=== PATIENT | female | born 1945 | race Caucasian/White ===

== ENCOUNTER → 2025-05-22 09:48 | Outpatient (CLI) | payer MEDICARE, MEDICAID, SELFPAY ==
--- NOTE | ~2025-05-22 | XR_ITS ---
EXAMINATION: XR shoulder LT min 2V, 05/22/2025 10:00 CDT HISTORY: M25.512 - Pain in left shoulder COMPARISON: No comparisons available. Findings: No acute fracture or malalignment. Severe degenerative changes Soft tissues unremarkable. Impression: No acute fracture or malalignment. Reviewed, dictated and finalized at location P. Impression: No acute fracture or malalignment.
--- OUTSIDE RECORDS SUMMARY | 2025-05-22 09:55 | XMS_ITS | Clinical Summary ---
Author Organization [facility] Address [facility] [place] [address] Care Team Providers Care Nuclear Equipment Design Engineer Name Role Phone Kellie Powers MD Primary Care Provider [phone] Social History Tobacco Use Types Packs/Day Years Used Date Smoking Tobacco: Never Assessed Comments Unknown Sex and Gender Information Value Date Recorded Sex Assigned at Not on file Legal Sex Female 12:33 PM CDT Gender Identity Not on file Sexual Orientation Not on file Plan of Treatment Health Maintenance Due Date Last Done Comments DTaP, Tdap and Td Vaccines ( 1 - Tdap) 01/02/1963 Pneumococcal Vaccine: 50+ Ye ars (1 of 1 - PCV) 01/02/1994 Zoster Vaccines (1 of 2) 01/02/1994 Annual Medicare Wellness Visit 01/02/2009 Dexa Scan (General) 01/02/2009 RSV Immunization or 60+ Years (1 - 1-dose 75+ series) 01/02/2019 COVID-19 Vaccine ( - 2023-2 5 season) 2025 Meningococcal B Vaccine Aged Out No l onger eligible based on patient's age to complete this topic Meningococcal Vaccine Aged Out No barrett ellen eligible based on patient's age to complete this topic RSV Immunizations Under 20 Months Aged Out No longer eligible based on patient's age to complete this topic Insurance MEDICARE [employer] Care Teams Nuclear Equipment Design Engineer Relationship Specialty Start Date End Date Kellie Powers MD [address] [place] [address] PCP - General EMERGENCY MEDICINE 01/17/22
--- OUTSIDE RECORDS SUMMARY | 2025-05-22 09:55 | XMS_ITS | Encounter Summary ---
Author Organization [facility] Address [address] [place] [address] Phone Care Team Providers Care Pocketbook Maker Name Role Phone Marilou Valentine Unavailable Unavailable Kellie Powers MD Primary Care Provider [phone] Encounter Details Date Type Department Care Team (Late st Contact Info) Description 08/22/2024 Telephone [facility] [address] [facility] [place], [place] [phone] Kellie Powers MD [address] [place] [address] Social History Tobacco Use Types Packs/Day Years Used Date Smoking Tobacco: Never Passive Smoke Exposure: Never Smokeless Tobacco: Never Alcohol Use Standard Drinks/Week Comments Never 0 (1 standard drink = 0.6 oz pur e alcohol) [facility] Utilities Answer Date Recorded In the past 12 months has [employer] electric, gas, oil, or water company threatened to shut off services in your home? No 08/21/2024 Social Connection and Isolation Panel Answer Date Recorded In a typical week, how many times do you talk on the phone with family, friends, or neighbors? Twice a week 08/21/20 How often do you get togethe r with friends or relatives? Patient declined 08/21/2024 How often do you attend [facility] or rastafarian services? 1 to 4 times per year 08/21/2024 Do you belong to any clubs o r organizations such as sikh groups, unions, fraternal or athletic groups, or school groups? No 08/21/2024 How often do you attend meet ings of the clubs or organizations you belong to? Patient declined 08/21/2024 Are you , , di vorced, , never , or living with a partner? 08/21/2024 AUDIT-C Answer Date Recorded Q1: How often do you have a drink containing alcohol? Never 08/21/2024 Q2: How many drinks containi ng alcohol do you have on a typical day when you are drinking? Patient does not drink Q3: How often do you have si x or more drinks on one occasion? Never 08/21/2024 Overall Financial Resource Strain (CARDIA) Answe r Date Recorded How hard is it for you to pa y for the very basics like food, housing, medical care, and heating? Not hard at all 08/21/2024 PHQ-2 Answer Date Recorded Total Score - Questions 1-9 0 06/27 [facility] - Occupational Stress Questionnaire Answer Date Recorded Do you feel stress - tense, restless, nervous, or anxious, or unable to sleep at night because your mind is troubled all the time - these days? To some extent 08/21/2024 Exercise Vital Sign Answer Date Recorde d On average, how many days pe r week do you engage in moderate to strenuous exercise (like a brisk walk)? Patient declined On average, how many minutes do you engage in exercise at this level? Patient declined 08/21/2024 Hunger Vital Sign Answer Date Recorded Within the past 12 months, y ou worried that your food would run out before you got the money to buy more. Never true 08/21/20 24 Within the past 12 months, t he food you bought just didn't last and you didn't have money to get more. Never true 08/21/2024 PRAPARE - Transportation Answer Date Re corded In the past 12 months, has l ack of transportation kept you from medical appointments or from getting medications? No 07/28 In the past 12 months, has l ack of transportation kept you from meetings, work, or from getting things needed for daily living? No 08/21/2024 Housing Stability Vital Sign Answer Harpal e Recorded In the last 12 months, was t here a time when you were not able to pay the mortgage or rent on time? No 08/21/2024 Number of Times Moved in the Last Year Not on fi le 08/21/2024 At any time in the past 12 m [facility], were you homeless or living in a senior care (including now)? No 08/21/2024 Comments No Sex and Gender Information Value Date Recorded Sex Assigned at Female 06/16/2024 2:51 PM CDT Legal Sex Female 1:45 PM CDT Gender Identity Female 08/21/2024 7:29 AM VEGETABLE BUNCHER Sexual Orientation Not on file documented as of this encounter Plan of Treatment Not on file documented as of this encounter Visit Diagnoses Not on filedocumented in this encounter Additional Health Concerns Assessment Noted Time PHQ-9 Depression Total Score: 0 07/15/20 1:00 PM VEGETABLE BUNCHER documented as of this encounter Care Teams Pocketbook Maker Relationship Specialty Start Date End Date Kellie Powers MD [address] [place] [phone] PCP - General Internal Medicine 05/16/24 05/11/25 Marilou Valentine Health Informatics Advisor 05/16/24 05/11/25 documented as of this encounter
--- OUTSIDE RECORDS SUMMARY | 2025-05-22 09:55 | XMS_ITS | Clinical Summary ---
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 04/05/20 16 Active empagliflozin (Jardiance) 25 MG TabletIndications: Type 2 diabetes mellitus with diabetic nephropathy, without long-term current use of insulin Take 1 Tablet by mouth daily. 90 Tablet 1 09/22/19 25 Active metFORMIN (GLUCOPHAGE) 1000 MG Tablet TAKE 1 TABLET BY MOUTH EACH MORNING TAKE 1/2 TABLET AT NOON AND TAKE 1 TABLET EVERY EVENING 225 Tablet 1 10/06/19 25 Active Gemtesa 75 MG Tablet TAKE 1 TABLET BY MOUTH EVERY DAY FOR OVERACTIVE BLADDER 30 Tablet 4 12/02/19 25 Active TURMERIC PO Take 2,000 mg by mouth daily. Active omeprazole (PriLOSEC) 20 MG CAPSULE DELAYED RELEASEIndications :Gastroesophageal reflux disease, unspecified whether esophagitis present TAKE 1 CAPSULE BY MOUTH TWICE DAILY BEFORE BREAKFAST AND SUPPER 60 Capsule 2 01/13/20 25 Active buPROPion (WELLBUTRIN) 75 MG TabletIndications: Anxiety TAKE 1 TABLET BY MOUTH EACH MORNING 90 Tablet 1 01/13/20 25 Active meclizine (ANTIVERT) 25 MG TabletIndications: Dizziness Take 1 Tablet by mouth 3 times daily as needed for Dizziness. 60 Tablet 1 01/27/20 25 Active losartan (COZAAR) 25 MG Tablet Take 1 Tablet by mouth daily. 90 Tablet 01/27/20 25 Active traZODone (DESYREL) 50 MG TabletIndications: Insomnia, unspecified type TAKE 1 TABLET BY MOUTH nightly for trouble sleeping 30 Tablet 2 02/10/20 25 Active True Metrix Blood Glucose Test Strip TEST BLOOD SUGAR ONCE DAILY (E11.65) 100 Strip 3 02/10/20 25 Active estradiol (ESTRACE) 0.1 MG/GM CreamIndications:P ostmenopausal atrophic vaginitis 2 g PV nightly x 14 days, then 2 g PV 3 nights/week x 2 weeks, then 2 g PV 2 nights/week thereafter 42.5 g 1 03/03/20 25 Active nystatin (MYCOSTATIN) 860585 UNIT/GM CreamIndications:C andidal intertrigo Apply 2 times daily. Application Site: apply to affected area 2 times a day (Description and Location) 30 g 1 03/19/20 25 Active nystatin (Nyamyc) 703710 UNIT/GM Powder TOPICALLY TWICE DAILY 30 g 2 03/23/20 25 Active pravastatin (PRAVACHOL) 20 MG TabletIndications: Mixed hyperlipidemia TAKE 1 TABLET BY MOUTH EVERY NIGHT AT BEDTIME 90 Tablet 1 03/23/20 25 Active Active Problems Problem Noted Date Diagnosed Date Candidal intertrigo 03/03/2025 Assessment & Plan (03/03/2025 4:16 PM CDT): - inframammary & groin. - refill nystatin cream. Ankle edema, bilateral 01/26/2025 Assessment & Plan (01/26/2025 6:00 PM CDT): - resolution with leg elevation. - continue leg elevation, advised compression stockings. - maintain good bp control. - limit salt. Chronic pain of right ankle 01/26/2025 Assessment & Plan (01/26/2025 6:01 PM CDT): - no recent trauma or injury. - advised ankle brace with prolonged standing/ambulation and prn. Other constipation 01/26/2025 Assessment & Plan (01/26/2025 6:05 PM CDT): - advised she increase water intake to goal to 60-70 oz water daily. - increase dietary fiber intake to >25 g/day. Consider fiber supplement. - stool softener up to 300 mg qd, divided doses. - MiraLax as directed qd-bid. Chronic neck pain 12/26/2024 Assessment & Plan (12/26/2024 11:52 AM CDT): - discussed imaging, as she hasn't had any recent c-spine imaging. Pt declines at this time but states will consider. At risk for falls 12/26/2024 Assessment & Plan (01/26/2025 6:00 PM CDT): - fall precautions reviewed. - home safety reviewed. - pt uses walker or cane 80% of time, primarily walker. Assessment & Plan (12/26/2024 11:54 AM CDT): - fall precautions reviewed. - home safety reviewed. - pt uses walker or cane 80% of time, primarily walker. Essential hypertension 08/25/2024 Assessment & Plan (03/03/2025 4:06 PM CDT): - 129/67 - continue losartan 25 mg qd. - monitor bp several times/week, keep log. Assessment & Plan (01/26/2025 5:57 PM CDT): - 130/93 initial, repeat manual after rest 138/69 in office today. - losartan 25 mg qd discontinue during recent hospitalization for low bp. Advised to resume. - monitor bp daily, keep log. Assessment & Plan (01/05/2025 3:47 PM CDT): - 125/72 in office today. - cpm. History of total knee arthroplasty 08/25/2024 Overview (08/25/2024): b/l History of total right hip replacement Overview (08/25/2024): 10/15 Episodic lightheadedness 08/22/2024 Overview (08/22/2024): Ms Millan went to ED on 08/18/24 for reported intermittent dizziness that started that same morning. She had recently been treated for UTI (10 days of Macrobid as prescribed through [facility]), and was fearful the UTI may have been a factor in the dizziness. In ED on 08/18/24 she had labs and CT head without significant findings. She was eventually discharged with diagnosis of dizziness and a prescription for Antivert 25 mg po TID PRN for dizziness. 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 Single episode of dizziness following ED visit that was noted this morning. States it occurred when she stood up from seated position. She denies feeling like the room is spinning. She states she feels off balance when the episodes occur, and only lasts a few moments. She denies falls. Because her episodes of lightheadedness are momentary, and do not seem to be BPPV associated, meclizine likely of no benefit. Suggest hydrating well with ~ 5 bottles of water daily. (She is drinking 3 16.9 oz bottles/ day). Change positions slowly. Use walker at all time for stability. F/u with Dr Powers on 09/01/24 as scheduled. Steatosis of liver 06/17/2024 Overview (06/17/2024): liver US 03/17 Chronic low back pain 02/16/2024 Fall on same level 02/16/2024 Closed fracture of left talus 07/01/2023 Spinal stenosis 05/25/2023 Alteration in performance of activities of daily living 05/15/2023 Muscle weakness 05/15/2023 Closed fracture of left calcaneus 05/09/2023 Arthralgia of left knee 05/08/2023 Falls 05/05/2023 Assessment & Plan (03/03/2025 4:14 PM CDT): - remove tripping hazards (rugs, clutter, etc) from walkways. Arrange furniture for clear pathways. - install grab bars in bathrooms and near staircases. - use non-slip mats in bathtub/shower. - ensure adequate lighting throughout the home. Use night lights in bedrooms, bathrooms and hallways. - stand up slowly. - keep frequently used items within reach. - wear well-fitting, supportive, non-slip shoes. - use assistive devices, such as walker and/or cane. - get vision and hearing checked regularly. - stay physically active. Assessment & Plan (01/05/2025 3:45 PM CDT): - have been discussing discontinuing Ambien, but pt has been resistant. - initiate Ambien wean due to balance impairment and falls. - reduce dose from 10 to 5 mg qhs. - RTO in ~2 wks. Chronic post-traumatic stress disorder Temporomandibular subluxation 11/02/2020 Dizziness 10/03/2020 Assessment & Plan (01/26/2025 5:57 PM CDT): - responds to meclizine, which she needs on average once every couple weeks. - meclizine refill sent. Assessment & Plan (12/26/2024 11:46 AM CDT): - responds to meclizine, which she needs on average once every couple weeks. CHETNA on CPAP 10/24/2018 Primary osteoarthritis of right hip 10/22/2018 Atherosclerosis of aorta 08/01/2018 Overview (06/17/2024): CXR:07.18.14 Atherosclerotic aorta. Anxiety 03/30/2017 Assessment & Plan (01/05/2025 3:46 PM CDT): - plan on weaning lorazepam once off Ambien completely. - continue lorazepam as precribed for now. Refill sent. Assessment & Plan (12/26/2024 12:01 PM CDT): - recent trial of lorazepam wean unsuccessful due to exacerbation of anxiety. Did not tolerate lorazepam 0.5 mg bid. Currently taking lorazepam 0.5 mg qAM, 1mg q PM. - continue trazodone 50 mg qhs. - upcoming (3 days) telehealth appt with Dr. Fuentes with [facility] behavioral health program at [facility]. Balance problem 11/06/2016 Assessment & Plan (03/03/2025 4:13 PM CDT): - gait instability due to balance impairment. - order wheeled walker with seat and brakes ([employer]). Degeneration of cervical intervertebral disc Gait difficulty 11/06/2016 Type 2 diabetes mellitus wit h diabetic nephropathy, without long-term current use of insulin 02/22/2016 Assessment & Plan (03/03/2025 4:09 PM CDT): - A1c 6.8 (01/18). - continue Jardiance 25 mg qd & metformin 2500 mg qd (divided doses). - continue statin & arb. - order diabetic shoes ([employer]). - patient advised on medication compliance and to maintain fasting blood sugar log to bring back for next visit. Advised on diet and regular exercise. Patient needs to perform proper and frequent foot care and needs a diabetic eye exam yearly. Assessment & Plan (01/26/2025 5:56 PM CDT): - A1c 6.8 (01/18). - continue Jardiance 25 mg qd & metformin 2500 mg qd (divided doses). - continue statin therapy. - losartan discontinued during recent hospitalization due to low bp. Advised to resume. - patient advised on medication compliance and to maintain fasting blood sugar log to bring back for next visit. Advised on diet and regular exercise. Patient needs to perform proper and frequent foot care and needs a diabetic eye exam yearly. Assessment & Plan (01/05/2025 3:48 PM CDT): - A1c 6.9 (03/19). - continue Invokana 300 mg qd. - patient advised on medication compliance and to maintain fasting blood sugar log to bring back for next visit. Advised on diet and regular exercise. Patient needs to perform proper and frequent foot care and needs a diabetic eye exam yearly. Assessment & Plan (12/26/2024 11:49 AM CDT): - A1c 6.6 09/20. - compliant with Jardiance and metformin. - repeat A1c. - check urine microalbum/creat. Assessment & Plan (09/22/2024 1:46 PM CARD SELLER): - repeat A1c & labs. - continue metformin, Invokana, Mixed incontinence 09/20/2015 Cough variant asthma 03/20/2014 High risk medications (not anticoagulants) long- term use 11/26/2013 Vitamin D deficiency 11/26/2013 Overview (06/17/2024): Acid reflux 01/10/2013 Menopausal and postmenopausal disorder 3 Overview (06/17/2024): Obesity 01/10/2013 Assessment & Plan (03/03/2025 4:18 PM CDT): - BMI 30.4. - Reinforced healthy lifestyle modifications including healthy eating, increased physical activity and proper sleep. Goal BMI 18.5-24.9. Assessment & Plan (01/26/2025 6:05 PM CDT): - BMI 30. - Reinforced healthy lifestyle modifications including healthy eating, increased physical activity and proper sleep. Goal BMI 18.5-24.9. Assessment & Plan (01/05/2025 3:49 PM CDT): - BMI 30.0. - Reinforced healthy lifestyle modifications including healthy eating, increased physical activity and proper sleep. Goal BMI 18.5-24.9. Assessment & Plan (12/26/2024 12:02 PM CDT): - BMI 30.0. - Reinforced healthy lifestyle modifications including healthy eating, increased physical activity and proper sleep. Goal BMI 18.5-24.9. Postmenopausal atrophic vaginitis 01/10/2013 Assessment & Plan (03/03/2025 4:17 PM CDT): - discontinued estradiol cream a couple yrs ago. Pt reports increased irritation & would like to resume. - refill estradiol cream. Insomnia 01/10/2013 Overview (06/17/2024): Assessment & Plan (01/05/2025 3:44 PM CDT): - initiate Ambien wean. - Rx trazodone 50 mg qhs. Assessment & Plan (06/18/2024 1:47 PM CDT): - continue ambien wean. Reduce to 2.5 mg nightly in 2 days and continue for 2 wks, then stop. - start trazodone 50 mg nightly once off ambien completely. - RTO 1 month. Irritable bowel syndrome 01/10/2013 Mixed hyperlipidemia 01/10/2013 Moderate recurrent major depression 01/10/2013 Assessment & Plan (03/03/2025 4:10 PM CDT): - stable. - continue bupropion 75 mg qd. Primary osteoarthritis involving multiple joints 01/10/2013 Overview (06/17/2024): Other specified abnormal findings of blood chemi stry 01/10/2013 Overview (06/17/2024): Resolved Problems Problem Noted Date Diagnosed Date Resolved Date Urinary tract infection without hematuria 08/22/2024 01/05/2025 Assessment & Plan (08/22/2024 4:39 PM CARD SELLER): 08/22/24: Urinary s/s have improved on Macrobid. She has completed the course of abx. Preoperative examination 06/17/2024 Acute urinary tract infection 05/09/2023 01/05/2025 Scalp laceration 05/05/2023 06/18/2024 Encounters Date Type Department Care Team Description 05/12/2025 Patient Outreach [facility] Outpatient Care Coordination [address] [place] [address] Marilou Valentine Care Management 03/20/2025 Refill [facility] [address] [place] [address] Kellie Powers MD Medication Refill 03/19/2025 Refill [facility] [address] [place] [address] Kellie Powers MD Medication Refill 03/19/2025 Refill [facility] [address] [place] [address] Kellie Powers MD Medication Refill 03/03/2025 2:30 PM CDT Office Visit [facility] [address] [place] [address] Kellie Powers MD Type 2 diabetes mellitus with diabetic nephropathy, without long-term current use of insulin (HCC) (Primary Dx); Essential hypertension; Moderate recurrent major depression (HCC); Balance problem; Postmenopausal atrophic vaginitis; Class 1 obesity due to excess calories with serious comorbidity and body mass index (BMI) of 30.0 to 30.9 in adult; Chronic low back pain, unspecified back pain laterality, unspecified whether sciatica present; Falls; Primary osteoarthritis involving multiple joints; Candidal intertrigo 03/03/2025 Travel from Last 3 Months Immunizations Immunization Administration Dates Next Due Influenza Vaccine,unspecifie d Formulation 05/27/2019,04/27/2016,05/07/2015,2012,05/14/2011 Influenza, Quadrivalent, Adjuvanted 05/18/2022,0 05/11/2021 Influenza, high-dose, trivalent, PF 06/17/2018 Influenza,Split Virus,Trivalent,Injectable,PF 05/07/2015,07/22/2013 Pneumococcal Vaccine - 13 Valent 10/09/2014 Pneumococcal Vaccine Adult - 23 Valent 03/27/2009 TDAP Vaccine 05/05/2023,11/30/2015 Family History Medical History Relation Name Comments Alzheimer's Disease Brother Heart Attack Father Heart Disease Father Heart Attack Mother Heart Disease Mother Diabetes Paternal Aunt Dementia Sister Relation Name Status Comments Brother Father Maternal Grandfather Maternal Grandmother Mother Paternal Aunt Paternal Grandfather Paternal Grandmother Sister Social History Tobacco Use Types Packs/Day Years Used Date Smoking Tobacco: Never Passive Smoke Exposure: Never Smokeless Tobacco: Never Tobacco Cessation:Counseling Given: No Alcohol Use Standard Drinks/Week Comments Never 0 (1 standard drink = 0.6 oz pur e alcohol) [facility] Utilities Answer Date Recorded In the past 12 months has [employer], gas, oil, or water [employer] threatened to shut off services in your home? No 08/21/2024 Social Connection and Isolation Panel Answer Date Recorded In a typical week, how many times do you talk on the phone with family, friends, or neighbors? Twice a week 08/21/20 How often do you get togethe r with friends or relatives? Patient declined 08/21/2024 How often do you attend [facility] ch or congregation services? 1 to 4 times per year 08/21/2024 Do you belong to any clubs o r organizations such as rastafari groups, unions, fraternal or athletic groups, or school groups? No 08/21/2024 How often do you attend meet ings of the clubs or organizations you belong to? Patient declined 08/21/2024 Are you , , di vorced, , never , or living with a partner? 08/21/2024 Overall Financial Resource Strain (CARDIA) Answe r Date Recorded How hard is it for you to pa y for the very basics like food, housing, medical care, and heating? Not hard at all 08/21/2024 PHQ-2 Answer Date Recorded Total Score - Questions 1-9 0 05/0 09/2024 [facility] - Occupational Stress Questionnaire Answer Date Recorded [...] any time in the past 12 m [facility], were you homeless or living in a chcf (including now)? No 08/21/2024 AUDIT-C Answer Date Recorded Q1: How often do you have a drink containing alcohol? Never 03/03/2025 Q2: How many drinks containi ng alcohol do you have on a typical day when you are drinking? Patient does not drink Q3: How often do you have si x or more drinks on one occasion? 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 Sexual Orientation Not on file Last Filed Vital Signs Vital Sign Reading Time Taken Comments Blood Pressure 129/67 03/03/2025 2:41 PM CDT Pulse 84 03/03/2025 2:41 PM CDT Temperature 36.8 C (98.2 F) 03/03/2025 2:41 PM CDT Respiratory Rate 20 03/03/2025 2:41 PM CDT Oxygen Saturation 96% 03/03/2025 2:41 PM CDT Inhaled Oxygen Concentration - - Weight 82.7 kg (182 lb 6.4 oz) 03/03/2025 2:41 P M CDT Height 165.1 cm (5' 5) 03/03/2025 2:41 PM CDT Body Mass Index 30.35 03/03/2025 2:41 PM CDT Plan of Treatment Health Maintenance Due Date Last Done Comments Diabetes: Eye Exam 1945 Diabetes: Foot Exam 1945 Hepatitis C Virus (HCV) Screening 1945 Zoster Immunization (1 of 2) 01/02/1994 Respiratory Syncytial Virus (RSV) Immunization (Adult) (1 - 1-dose 75+ series) 01/02/2019 DEXA Bone Density 06/18/2021 06/18/2019 Influenza Immunization (#1) 04/27/202504/28, 05/11/2021, 05/27/2019, Additional history exists SARS-COV-2 Immunization ( season) 2025 01/05/2022, 06/27/2021, 10/25/2020, Additional history exists Diabetes: Hemoglobin A1c 06/28/2025 025, 09/22/2024, 02/09/2021, Additional history exists Diabetes: Nephropathy Screening 12/26/2025 12/26/2024, 12/12/2024, 09/22/2024, Additional history exists Td Immunization Every 10 Years (Adults With 1 Tdap) 05/05/2033 05/05/2023, 11/30/2015 Pneumococcal Immunization (50+ years) Completed 10/09/2014, 03/27/2009 TdaP Immunization Discontinued 05/05/2023, 11/30/2015 Hepatitis B Immunization Aged Out No longer eligible based on patient's age to complete this topic Human Papillomavirus (HPV) Immunization Aged Out No longer eligible based on patient's age to complete this topic Meningococcal Immunization (ACWY) Aged Out No longer eligible based on patient's age to complete this topic Rotavirus Immunization Aged Out No lo nger eligible based on patient's age to complete this topic Procedures Procedure Name Priority Date/Time Associated Diagnosis Comments UR MICROALBUMIN/CREATIN INE RATIO RANDOM Routine 12/26/2024 12:12 PM CDT Type 2 diabetes mellitus with diabetic nephropathy, without long-term current use of insulin (HCC) HEMOGLOBIN A1C W/ ESTIMATED GLUCOSE Routine 12/26/2024 12:09 PM CDT Type 2 diabetes mellitus with diabetic nephropathy, without long-term current use of insulin (HCC) from Last 3 Months or Most Recently Relevant to Health Maintenance Results * UR MICROALBUMIN/CREATININE RATIO RANDOM (12/26/2024 12:12 PM CDT) RAN UR MICROALBUMIN 7.20 0.00 - 30.00 mg/L 12/26/2024 5:15 PM CDT [facility] CREATININE URINE 49.4 >=0.0 mg/dL 12/26/2024 5:15 PM CDT [facility] ALB/CREAT RATIO 15 0 - 30 mg/g CRE 12/26/2024 5:15 PM T [facility] Urine Non-Phlebotomy Collection / Unknown 12/26/2024 12:12 PM CDT 12/26/2024 12:12 PM CDT us Kellie Powers MD URINE ORDERABLES Final Resu lt [facility] [address] [place] [address], [place] [phone] * (ABNORMAL) HEMOGLOBIN A1C W/ ESTIMATED GLUCOSE (12/26/2024 12:09 PM CDT) HGB-A1C 6.8(H) 4.0 - 6.0 % 12/26/2024 5:54 PM CDT [facility] Est Average Glucose 148.5 mg/dL 12/26/2024 5:54 PM CDT [facility] Blood Venipuncture / Unknown 12/26/2024 12:09 PM CDT 12/26/2024 12:10 PM CDT us Kellie Powers MD CHEMISTRY ORDERABLES Final Result [facility] [address] [facility] [place] [address], from Last 3 Months or Most Recently Relevant to Health Maintenance Insurance MEDICARE [facility] Advance Directives Documents on File Type Date Recorded 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
--- OUTSIDE RECORDS SUMMARY | 2025-05-22 09:55 | XMS_ITS | Encounter Summary ---
Author Organization [facility] Address [address] [place] [address] Phone Care Team Providers Care Jet Mechanic Name Role Phone Marilou Valentine Unavailable Unavailable Kellie Powers MD Primary Care Provider [phone] Reason for Visit * Reason Comments Medication Refill Encounter Details Date Type Department Care Team (Late st Contact Info) Description 10/02/[address] [place], [place] [phone] [place] [address] [place] [address] Medication Refill Social History Tobacco Use Types Packs/Day Years Used Date Smoking Tobacco: Never Passive Smoke Exposure: Never Smokeless Tobacco: Never Alcohol Use Standard Drinks/Week Comments Never 0 (1 standard drink = 0.6 oz pur e alcohol) [facility] Utilities Answer Date Recorded In the past 12 months has [employer], gas, oil, or water company threatened [...] declined 08/21/2024 How often do you attend chur ch or christian services? 1 to 4 times per year 08/21/2024 Do you belong to any clubs o r organizations such as rastafarian groups, unions, fraternal or athletic groups, or [...] Recorded Total Score - Questions 1-9 0 08/28 [facility] - Occupational Stress Questionnaire Answer Date [...] any time in the past 12 m [facility], were you homeless or living in a care home (including now)? 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
--- OUTSIDE RECORDS SUMMARY | 2025-05-22 09:55 | XMS_ITS | Encounter Summary ---
Author Organization [facility] Address [address] [place] [address] Phone Care Team Providers Care Junior Web Designer Name Role Phone Marilou Valentine Unavailable Unavailable Kellie Powers MD Primary Care Provider [phone] Encounter Details Date Type Department Care Team (Late st Contact Info) Description 08/08/2024 Telephone [facility] [address] [facility] [place], [place] [phone] Kellie Powesr MD [address] [place], [place] Social History Tobacco Use Types Packs/Day Years Used Date Smoking Tobacco: Never Smokeless Tobacco: Never Alcohol Use Standard Drinks/Week Comments Never 0 (1 standard drink = 0.6 oz pur e alcohol) [facility] Utilities Answer Date Recorded In the past 12 months has [employer] electric, gas, oil, or water company threatened to shut off services in your home? No 06/18/2024 Social Connection and Isolation Panel Answer Date Recorded In a typical week, how many times do you talk on the phone with family, friends, or neighbors? Once a week 06/18/2024 How often do you get together with friends or re latives? Never 06/18/2024 How often do you attend protestant or spiritism serv ices? Never 06/18/2024 Do you belong to any clubs o r organizations such as protestant groups, unions, fraternal or athletic groups, or school groups? No 06/18/2024 How often do you attend meet ings of the clubs or organizations you belong to? Never 06/18/2024 Are you , , di vorced, , never , or living with a partner? 06/18/2024 AUDIT-C Answer Date Recorded Q1: How often do you have a drink containing alcohol? Never 06/18/2024 Q2: How many drinks containi ng alcohol do you have on a typical day when you are drinking? Patient does not drink Q3: How often do you have si x or more drinks on one occasion? Never 06/18/2024 Overall Financial Resource Strain (CARDIA) Answe r Date Recorded How hard is it for you to pa y for the very basics like food, housing, medical care, and heating? Not hard at all 06/18/2024 PHQ-2 Answer Date Recorded Total Score - Questions 1-9 0 06/27 [facility] - Occupational Stress Questionnaire Answer Date Recorded Do you feel stress - tense, restless, nervous, or anxious, or unable to sleep at night because your mind is troubled all the time - these days? Not at all 06/18/2024 Exercise Vital Sign Answer Date Recorde d On average, how many days pe r week do you engage in moderate to strenuous exercise (like a brisk walk)? 0 days 06/18/2024 On average, how many minutes do you engage in exercise at this level? 0 min 06/18/2024 Hunger Vital Sign Answer Date Recorded Within the past 12 months, y ou worried that your food would run out before you got the money to buy more. Never true 06/18/20 24 Within the past 12 months, t he food you bought just didn't last and you didn't have money to get more. Never true 06/18/2024 PRAPARE - Transportation Answer Date Re corded In the past 12 months, has l ack of transportation kept you from medical appointments or from getting medications? No 05/28 In the past 12 months, has l ack of transportation kept you from meetings, work, or from getting things needed for daily living? No 06/18/2024 Housing Stability Vital Sign Answer Harpal e Recorded In the last 12 months, was t here a time when you were not able to pay the mortgage or rent on time? No 06/18/2024 Number of Times Moved in the Last Year Not on fi le 06/18/2024 At any time in the past [address] [facility], were you homeless or living in a long term (including now)? No 06/18/2024 Comments No Sex and Gender Information Value Date Recorded Sex Assigned at Female 06/16/2024 2:51 PM CDT Legal Sex Female 1:45 PM CDT Gender Identity Female 08/21/2024 7:29 AM INSTRUCTIONAL DESIGN TECHNOLOGIST Sexual Orientation Not on file documented as of this encounter Miscellaneous Notes * Telephone Encounter - Shasta Burns LPN - 08/08/2024 4:29 PM INSTRUCTIONAL DESIGN TECHNOLOGIST Discussed with Dr powers and pt needs to be seen UA needs to be done and recommendation is to go to [facility], phoned pt and informed on voiced understanding. RUCTIONAL DESIGN TECHNOLOGIST * Telephone Encounter - Cynthia Valadez I - 08/08/2024 4:18 PM CST Pt called and stated she has a UTI and was wanting medication called in. Pts callback number is [phone]. RUCTIONAL DESIGN TECHNOLOGIST documented in this encounter Plan of Treatment Not on file documented as of this encounter Visit Diagnoses Not on filedocumented in this encounter Additional Health Concerns Assessment Noted Time PHQ-9 Depression Total Score: 0 07/15/20 24 1:00 PM INSTRUCTIONAL DESIGN TECHNOLOGIST documented as of this encounter Care Teams Junior Web Designer Relationship Specialty Start Date End Date Kellie Powers MD [address] [place] [id number] PCP - General Internal Medicine 05/16/24 05/11/25 Marilou Valentine Fast Food Cashier 05/16/24 05/11/25 documented as of this encounter
--- OUTSIDE RECORDS SUMMARY | 2025-05-22 09:55 | XMS_ITS | Clinical Summary ---
Author Organization [facility] [employer] Address [address] [place] [address] Care Team Providers Care Body Technician/Painter Name Role Phone Farhad Devlin MD Unavailable [phone] Franco Mishra MD Unavailable Sue DillonDEPORTATION EXAMINER Unavailable [phone] Kellie Powers MD Primary Care Provider [phone] Source Comments [facility],non-owned Affiliates and Associated Physician Practices is amultiple site organization consisting of ambulatory clinics and hospital sitesin [place], [place], [place] and [place]. This disclosure is being madepursuant to the Care Everywhere program and may not contain all information available regarding this patient. Last updated 18.[facility] [employer] Allergies Active Allergy Reactions Criticality Noted Date Comments Duloxetine 01/10/2013 Venlafaxine Diarrhea,Nausea and/or Vomiting 01/10/2013 Atorvastatin Myalgias 01/10/2013 Morphine Nausea and/or Vomiting 09/10/2018 Pravastatin 05/07/2014 Aches, muscle pains Hydrocodone-Acetaminoph en Nausea and/or Vomiting 01/10/2013 Simvastatin Myalgias 01/10/2013 Medications * This document contains information received from the source organization and may not represent a complete record from that organization. * Be aware that medications may not be up to date on this document. Alwaysverify current medications with the patient. CPAPIndications :CHETNA (obstructive sleep apnea) Use as directed 8 Resmed Airsense 10 3 Epr relief-with/with out climate line-Heated humidifier at 4-Nuanee Pro mask, widw white type nasal pillows, size small DX: CHETNA G47.33 CHANGE in PRESSURE from [address] OTERO 1 Each 0 6 Active Additional Information Patient taking differently:Does not apply DIRECTED, 8 Resmed Airsense 10 3 Epr relief-with/without climate line-Heated humidifier at 4-Nuanee Pro mask, widw white type nasal pillows, size small DX: CHETNA G47.33 CHANGE in PRESSURE from [address] OTERO,Indications: as tolerated, Reported on 04/21/2019 fluticasone propionate (FLONASE) 50 MCG/ACT nasal spray Isabela 2 sprays into each nostril as needed Active Sennosides (EX-LAX PO) Active docusate sodium (COLACE) 100 MG capsule Take 1 capsule by mouth once daily 30 capsule 9 Active ibuprofen (MOTRIN) 400 MG tabletIndicatio ns:for arthritis Take 1 tablet by mouth once daily Do not take motrin until Xarelto is completed. May take tylenol in place of motrin. Reasons: for arthritis 30 tablet 9 Active aspirin (ASPIRIN) 81 MG tablet Take 1 tablet by mouth once daily Hold ASA until finished with Xarelto 9 Active losartan (COZAAR) 50 MG tablet TAKE 1 TABLET BY MOUTH TWICE DAILY 360 tablet 3 0 Active escitalopram (LEXAPRO) 20 MG tablet TAKE 1 TABLET BY MOUTH EVERY DAY 90 tablet 3 0 Active glimepiride (AMARYL) 2 MG tablet Take 1 tablet by mouth once daily 90 tablet 3 0 Active TRUE METRIX BLOOD GLUCOSE TEST test strip TEST BLOOD SUGAR TWICE DAILY (E11.65) 100 strip 5 0 Active buPROPion (WELLBUTRIN) 75 MG tablet TAKE 1 TABLET BY MOUTH ONCE A DAY 30 tablet 2 0 Active metFORMIN ER 24hr (GLUCOPHAGE XR) 500 MG tablet TAKE 1 TABLET BY MOUTH (3) TIMES DAILY WITH MEALS 270 tablet 0 Active LORazepam (ATIVAN) 1 MG tablet TAKE 1 TABLET BY MOUTH EVERY 12 HOURS NEEDED FOR ANXIETY 60 tablet 2 0 Active zolpidem (AMBIEN) 10 MG tablet TAKE 1/2 TO 1 TABLET BY MOUTH EVERY NIGHT AT BEDTIME NEEDED FOR SLEEP 90 tablet 1 1 Active omeprazole (PRILOSEC) 20 MG capsule TAKE 1 CAPSULE BY MOUTH TWICE DAILY BEFORE BREAKFAST AND SUPPER 180 capsule 1 Active Active Problems Problem Noted Date Diagnosed Date CHETNA on CPAP 12/03/2018 Primary osteoarthritis of right hip 10/22/2018 Atherosclerosis of aorta 08/01/2018 Overview (08/01/2018): CXR:07.18.14 Atherosclerotic aorta. Balance problem 11/06/2016 Gait difficulty 11/06/2016 Degeneration of cervical intervertebral disc Type 2 diabetes mellitus wit h diabetic nephropathy, without long-term current use of insulin 02/22/2016 Mixed incontinence 09/20/2015 Cough variant asthma 03/20/2014 High risk medications (not anticoagulants) long- term use 11/26/2013 Vitamin D deficiency 11/26/2013 Overview (05/27/2015): Other specified abnormal findings of blood chemi stry 01/10/2013 Overview (07/04/2015): Postmenopausal atrophic vaginitis 01/10/2013 Essential hypertension, benign 01/10/2013 Benign neoplasm of skin of o ther and unspecified parts of face 01/10/2013 Depression 01/10/2013 Esophageal reflux 01/10/2013 Mixed hyperlipidemia 01/10/2013 Insomnia 01/10/2013 Overview (05/27/2015): Irritable bowel syndrome 01/10/2013 Other malaise and fatigue 01/10/2013 Menopausal and postmenopausal disorder 3 Overview (05/27/2015): Obesity 01/10/2013 Overview (05/27/2015): Osteoarthritis 01/10/2013 Overview (05/27/2015): Preoperative examination Resolved Problems Problem Noted Date Diagnosed Date Resolved Date Acute tracheobronchitis 12/31/201808/2018 Intertrigo 09/12/2018 05/27/2019 Difficulty walking 11/14/2016 9 Recurrent falls 11/06/2016 05/27/2019 Contact dermatitis and other eczema, due to unspecified cause 01/10/2013 05/27/2019 Diverticulitis of colon 01/10/201308/2018 Overview (05/27/2015): Edema 01/10/2013 05/27/2019 Immunizations Immunization Administration Dates Next Due Covid Moderna primary monova lent 12+ yr 0.5mL 10/25/2020,09/27/2020 FLU VACCINE TRI IIV3 SPLIT PF IM (FLUVIRIN) 04/27,07/22/2013 INFLUENZA VACCINE 05/27/2019,04/27/2016,05/14/20 11 PNEUMOCOCCAL PPSV23 03/27/2009 TDAP (7yrs+) 11/30/2015 Family History Medical History Relation Name Comments Alzheimer's Disease Brother Heart Disease Father heart attack Heart Disease Mother heart attack Relation Name Status Comments Brother Father Mother Social History Tobacco Use Types Packs/Day Years Used Date Smoking Tobacco: Never Smokeless Tobacco: Never Tobacco Cessation:Counseling Given: No Alcohol Use Standard Drinks/Week Comments No 0 (1 standard drink = 0.6 oz pur e alcohol) PHQ-2 Answer Date Recorded PHQ2 TOTAL SCORE 5 06/02/2022 Comments No Sex and Gender Information Value Date Recorded Sex Assigned at Not on file Legal Sex Female 7:05 AM PRODUCTION MANAGER Gender Identity Not on file Sexual Orientation Not on file Last Filed Vital Signs Vital Sign Reading Time Taken Comments Blood Pressure 142/83 08/13/2019 2:30 PM PRODUCTION MANAGER Pulse 83 08/13/2019 2:30 PM PRODUCTION MANAGER Temperature 36.2 C (97.2 F) 08/13/2019 2:30 PM PRODUCTION MANAGER Respiratory Rate 16 08/13/2019 2:30 PM PRODUCTION MANAGER Oxygen Saturation 97% 08/13/2019 2:30 PM PRODUCTION MANAGER Inhaled Oxygen Concentration 21% 10/25/2018 2 :22 AM PRODUCTION MANAGER Weight 107.4 kg (236 lb 12.8 oz) 08/13/2019 2:30 PM PRODUCTION MANAGER Height 165.1 cm (5' 5) 08/13/2019 2:30 PM PRODUCTION MANAGER Body Mass Index 39.41 08/13/2019 2:30 PM PRODUCTION MANAGER Plan of Treatment Health Maintenance Due Date Last Done Comments DIABETES-STATIN 1984 ZOSTER VACCINE (1 of 2) 01/02/1994 PNEUMOCOCCAL VACCINE 50+ (2 of 2 - PCV) 03/27/2010 03/27/2009 MEDICARE AWV 12 MONTHS 07/14/2017 07/14/2016, 06/11/2015, 06/11/2015, Additional history exists Respiratory Syncytial Virus (RSV) Vaccine Pt: or over 60 yrs (1 - 1-dose 75+ series) 01/02/2019 DIABETES-SERUM CREATININE 11/06/20202019, 05/20/2019, 11/25/2018, Additional history exists BONE DENSITY TESTING 06/18/2021 06/18/2019, 04/30/2014, 01/02/2009 (Previously completed) DIABETES-HGB A1C 10/07/2021 07/07/2021, , 05/20/2019, Additional history exists DIABETES RETINOPATHY SCREENING 05/20/2022 05/20/2020, 02/10/2019 (Done Outside Per Patient), 12/13/2017 (Done Outside Per Report), Additional history exists DEPRESSION SCREENING 08/27/2024 07/11/2022, 06/02/20 22 DIABETES - URINE PROTEIN SCREENING 08/27/2024 COVID-19 VACCINE ( season) 2025 10/25/2020, 09/27/2020 INFLUENZA VACCINE (#1) 2025 9, 04/27/2016, 05/07/2015, Additional history exists DTAP/TDAP/TD VACCINES (2 - Td or Tdap) 11/29/2025 11/30/2015 DIABETES-FOOT EXAM WITH MONOFILAMENT Discontinued 12/18/2016 (Done Outside Per Report) HEPATITIS B VACCINE Aged Out No longe r eligible based on patient's age to complete this topic HIB VACCINE Aged Out No longer eligi ble based on patient's age to complete this topic HPV VACCINE Aged Out No longer eligi ble based on patient's age to complete this topic MENINGOCOCCAL (Group B) VACCINE SHARED DECISION-MAKING Aged Out No longer eligible based on patient's age to complete this topic MENINGOCOCCAL GROUPS A/C/Y/W VACCINE Aged Out No longer eligible based on patient's age to complete this topic Medical Devices Implanted Type Area Public Safety Director Device Identifier Shelf Expiration Date Model / Serial / Lot Constrained Liner 36mm Head, 23 Liner Standard Face Implanted:Qty: 1 on 10/22/2018 by Farhad Romero MD at [facility] [place] Other (Type not listed) Right: [employer] 09/04/2022 [id number] / / [id number] Shell Actb 50mm Hip Lmt Hl Fin Rnglc+ 23 Implanted:Qty: 1 on 10/22/2018 by Farhad Romero MD at [facility] [place] Right: Hip [employer] 09/19/2027 [id number] / / [id number] Screw 6.5mm 25mm Dome Hip Actb Canc Implanted:Qty: 1 on 10/22/2018 by Farhad Romero MD at [facility] [place] Right: Hip [employer] 05/29/2027 [id number] / / [id number] Stem Fem 11mm 160mm Cmnt Por Malhd 136.5 Implanted:Qty: 1 on 10/22/2018 by Farhad Romero MD at [facility] [place] Right: Hip [employer] 06/10/2028 [id number] / / [id number] Witter Hip System Neck, Type 1 Taper 36mm Implanted:Qty: 1 on 10/22/2018 by Farhad Romero MD at [facility] [place] Right: [employer] 09/20/2028 [id number] / / [id number] Procedures Procedure Name Priority Date/Time Associated Diagnosis Comments COMPREHENSIVE METABOLIC PANEL Routine 11/07/2019 9:56 AM CDT Type 2 diabetes mellitus with diabetic nephropathy, without long-term current use of insulin HEMOGLOBIN A1C Routine 11/07/2019 9:56 AM CDT Type 2 diabetes mellitus with diabetic nephropathy, without long-term current use of insulin DEXA BONE DENSITY AXIAL SKELETON Routine 06/18/2019 11:30 AM CDT Post-menopause from Last 3 Months or Most Recently Relevant to Health Maintenance Results * (ABNORMAL) HEMOGLOBIN A1C (11/07/2019 9:56 AM CDT) Hemoglobin A1c 8.2(H) 4.2 - 5.6 % 11/07/2019 1:25 PM CDT [facility] Estimated Average Glucose 189 mg/dL 11/07/2019 1:25 PM CDT [facility] Blood BLOOD SPECIMEN / Unknown Venipuncture / Unknown 11/07/2019 9:56 AM CDT 11/07/2019 9:56 AM CDT Narrative [facility] - 11/07/2019 1:25 PM CDT The following cutoff levels are recommended by [place] [employer]. A1c > 6.5% : considered as diabetes if two separate tests >6.5% or in an appropriate clinical setting. A1c 5.7% - 6.4% : considered as prediabetes (suggest increased risk for diabetes and cardiovascular disease) Control target level: Should be individualized. < 7 for general (non-) , < 8% less stringent goal, < 6.5 more stringent goal. Hemoglobin A1c measurements are used as an aid in the diagnosis of diabetic mellitus, as an aid to identify patients who may be at the risk for developing diabetic mellitus, and for the monitoring long-term blood glucose control in individuals with diabetes mellitus. This test should not replace glucose testing for patients with Type 1 diabetes, pediatric patients, or women. Falsely low HbA1c results may be observed in patients with clinical conditions that shorten erythrocyte life span or decrease mean erythrocyte age such as the presence of unstable hemoglobin variants, elevated hemoglobin F level or other causes of hemolytic anemia . HbA1c may not accurately reflect glycemic control when clinical conditions that affect erythrocyte survival are present. Severe Iron deficiency anemia may yield falsely high results. Hemoglobin A1c assay should not be used to diagnose or monitor diabetes in patients with malignancy, recent blood transfusion, chronic kidney or liver disease. This method may yield falsely low results when hemoglobin (HbF) exceeds 5% in the specimen. us Ken Otero MD LAB - CHEMISTRY ORDERABLES Missy mcdermott Result [facility] [address] * (ABNORMAL) COMPREHENSIVE METABOLIC PANEL (11/07/2019 9:56 AM CDT) [facility] Glucose 184(H) 70 - 125 mg/dL 11/07/2019 1:55 PM T [facility] Sodium 138 136 - 145 mmol/L 11/07/2019 1:55 PM T [facility] Potassium 4.0 3.4 - 4.5 mmol/L 11/07/2019 1:55 PM [facility] Chloride 101 98 - 107 mmol/L 11/07/2019 1:55 PM T [facility] CO2 25 22 - 29 mmol/L 11/07/2019 1:55 PM T [facility] Calcium 9.1 8.4 - 10.2 mg/dL 11/07/2019 1:55 PM T [facility] Anion Gap 16 10 - 20 mmol/L 11/07/2019 1:55 PM T [facility] BUN 17.3 9.8 - 20.1 mg/dL 11/07/2019 1:55 PM [facility] Creatinine 0.69 0.57 - 1.11 mg/dL 11/07/2019 1:55 PM [facility] eGFR by MDRD >60 >60 mL/min/1.7 3m2 11/07/2019 1:55 PM [facility] eGFR by MDRD >60 >60 mL/min/1.7 3m2 11/07/2019 1:55 PM T [facility] Alkaline Phosphatase 110 40 - 150 U/L 11/07/2019 1:55 PM [facility] ALT 28 5 - 55 U/L 11/07/2019 1:55 PM [facility] AST 24 5 - 34 U/L 11/07/2019 1:55 PM [facility] Protein Total 6.8 6.4 - 8.3 gm/dL 11/07/2019 1:55 PM [facility] Albumin 3.4(L) 3.5 - 5.0 gm/dL 11/07/2019 1:55 PM [facility] Globulin Total 3.4 2.6 - 4.0 gm/dL 11/07/2019 1:55 PM [facility] Albumin/Globulin Ratio 1.0 0.9 - 1.6 11/07/2019 1:55 PM CDT [facility] Bilirubin Total 0.5 0.2 - 1.2 mg/dL 11/07/2019 1:55 PM CDT [facility] Blood BLOOD SPECIMEN / Unknown Venipuncture / Unknown 11/07/2019 9:56 AM CDT 11/07/2019 9:56 AM CDT us Ken Otero MD LAB - CHEMISTRY ORDERABLES Missy l Result Performing Organization Address [facility] Co de Phone Number [facility] [address] * DEXA BONE DENSITY STUDY [id number] (06/18/2019 11:30 AM CDT) Anatomical Region Laterality Modality Radiographic Luz Marina ging 06/18/2019 11:5 0 AM CDT Impressions 06/18/2019 11:52 AM CDT COMPARISON: 04/30/2014. HIP JOINT:. BMD-1.043 g centimeters square T score 0.3 Z score 1.2. LUMBAR SPINE:. BMD-1.462 g centimeters square T score 2.2 Z score 2.8. RADIUS:. BMD 0.653 g centimeters square T score -0.5 Z score 1.8. IMPRESSION:. Normal BMD No osteopenia or osteoporosis Follow-up in 2 years. 10 year probability of fracture as follows. Major osteoporotic fracture 9.2% Hip fracture 2.3%. Narrative 06/18/2019 11:52 AM CDT PROCEDURE: DEXA BONE DENSITY AXIAL SKELETON 06/18/2019 11:50 AM HISTORY: Asymptomatic menopausal state. FINDINGS AND Procedure Note Shaquille Fuentes MD - 06/18/2019 PROCEDURE: DEXA BONE DENSITY AXIAL SKELETON 06/18/2019 11:50 AM HISTORY: Asymptomatic menopausal state. FINDINGS AND IMPRESSION COMPARISON: 04/30/2014. HIP JOINT:. BMD-1.043 g centimeters square T score 0.3 Z score 1.2. LUMBAR SPINE:. BMD-1.462 g centimeters square T score 2.2 Z score 2.8. RADIUS:. BMD 0.653 g centimeters square T score -0.5 Z score 1.8. IMPRESSION:. Normal BMD No osteopenia or osteoporosis Follow-up in 2 years. 10 year probability of fracture as follows. Major osteoporotic fracture 9.2% Hip fracture 2.3%. Ken Otero MD DEXA ORDERABLES Final Result from Last 3 Months or Most Recently Relevant to Health Maintenance Insurance MEDICARE COMMERCIAL GENERIC MEDICARE SUPPLEMENT PAYOR GENERIC MEDICARE MEDICARE MEDICARE SUPPLEMENT PAYOR GENERIC [facility] Advance Directives * Full Code (Latest Code Status on File) Date Activated Date Inactivated Comments 10/22/2018 4:31 PM 10/25/2018 4:34 PM Care Teams Body Technician/Painter Relationship Specialty Start Date End Date Kellie Powers MD [address] [place] [id number] PCP - General Internal Medicine 12/25/24 Farhad Devlin MD General Surgery 01/16/14 Franco Mishra MD Pulmonary Disease 03/26/14 Sue Dillon APRN-CNP Nurse Practitioner Pulmonary Disease 12/20/17
== END ==
PROVIDERS: PCP Nurse Practitioner Family; Visit Provider Nurse Practitioner Family
DX: M25.512 Pain in left shoulder (principal)
CPT/HCPCS: 73030

== ENCOUNTER 2025-06-09 19:05 | Emergency (ER) | payer MEDICARE, MEDICAID, SELFPAY ==
--- NOTE | ~2025-06-09 | CT_ITS ---
CT abdomen pelvis w con INDICATION:abd pain, generalized . COMPARISON: None. TECHNIQUE: Axial images of the abdomen and pelvis were obtained following infusion of 100 mL Isovue 300. Dose optimization technique was utilized. FINDINGS: The lung bases are clear. There is a small hiatal hernia. The liver parenchyma is unremarkable. No intrahepatic mass or ductal dilatation is evident. The gallbladder is unremarkable. The pancreas and spleen are normal in appearance. Indeterminate 15 mm left adrenal nodule. The kidneys demonstrate symmetric uptake and excretion of contrast. 2 cm left renal cyst is noted. There is no solid mass. There is no hydronephrosis. Evaluation of the stomach and bowel loops are limited due to lack of oral contrast. Moderate retained stool throughout the colon is consistent with constipation. The bladder and rectum are normal. No free intraperitoneal fluid or air is evident. There is no significant retroperitoneal lymphadenopathy. The aorta, visceral vessels and renal arteries demonstrate normal caliber and patency. The lower thoracic and lumbar vertebrae are in normal alignment. IMPRESSION: Small hiatal hernia. Indeterminate 15 mm left adrenal nodule. Constipation. All CT scans at this facility are performed using low dose modulation techniques as appropriate to perform exam including the following: automated exposure control; use of iterative reconstruction technique; adjustment of the mA and/or kV according to patient size (this includes techniques or standardized protocols for targeted exams where dose is matched to indication/reason for exam). Reviewed, dictated and finalized at location S. IMPRESSION: Small hiatal hernia. Indeterminate 15 mm left adrenal nodule. Constipation. All CT scans at this facility are performed using low dose modulation techniqu es as appropriate to perform exam including the following: automated exposure c ontrol; use of iterative reconstruction technique; adjustment of the mA and/or kV according to patient size (this includes techniques or standardized protocol s for targeted exams where dose is matched to indication/reason for exam).
--- NOTE | ~2025-06-09 | XR_ITS ---
XR shoulder LT min 2V HISTORY: Shoulder Pain COMPARISON: None. FINDINGS: External and internal rotated views and scapular Y view of the left shoulder demonstrate no acute fracture or dislocation. AC joint arthropathy is noted. IMPRESSION: No acute fracture or dislocation. Reviewed, dictated and finalized at location S.
--- OUTSIDE RECORDS SUMMARY | 2025-06-09 19:11 | XMS_ITS | Encounter Summary ---
Author Organization [facility] Address [address] [place] [address] Phone Care Team Providers Care Photo Tech Name Role Phone Marilou Valentine Unavailable Unavailable Kellie Powers MD Primary Care Provider [phone] Encounter Details Date Type Department Care Team (Late st Contact Info) Description 08/22/2024 Telephone [facility] [address] [facility] [place], [place] [phone] Kellie Powers MD [address] [place] [address] Social History Tobacco Use Types Packs/Day Years Used Date Smoking Tobacco: Never Passive Smoke Exposure: Never Smokeless Tobacco: Never Alcohol Use Standard Drinks/Week Comments Never 0 (1 standard drink = 0.6 oz pur e alcohol) [facility] Utilities Answer Date Recorded In the past 12 months has [employer] electric, gas, oil, or water company threatened [...] declined 08/21/2024 How often do you attend [facility] or gnosticism services? 1 to 4 times per year 08/21/2024 Do you belong to any clubs o r organizations such as roman catholic groups, unions, fraternal or athletic groups, or [...] Total Score - Questions 1-9 0 06/27 [facility] of Occupat ional Health - Occupational Stress [...] any time in the past 12 m [facility], were you homeless or living in a penitentiary (including now)? No 08/21/2024 Comments No Sex and Gender Information Value Date Recorded Sex Assigned at Female 06/16/2024 2:51 PM CDT Legal Sex Female 1:45 PM CDT Gender Identity Female 08/21/2024 7:29 AM SEWER HEAD Sexual Orientation Not on file documented as of this encounter Plan of Treatment Not on file documented as of this encounter Visit Diagnoses Not on filedocumented in this encounter Additional Health Concerns Assessment Noted Time PHQ-9 Depression Total Score: 0 07/15/20 1:00 PM SEWER HEAD documented as of this encounter Care Teams Photo Tech Relationship Specialty Start Date End Date Kellie Powers MD [address] [place] [phone] PCP - General Internal Medicine 05/16/24 05/11/25 Marilou Valentine Technical Publications Manager 05/16/24 05/11/25 documented as of this encounter
--- OUTSIDE RECORDS SUMMARY | 2025-06-09 19:11 | XMS_ITS | Encounter Summary ---
Author Organization [facility] Address [address] [place] [address] Phone Care Team Providers Care Pizza Maker Name Role Phone Marilou Valentine Unavailable Unavailable Kellie Powers MD Primary Care Provider [phone] Reason for Visit * Reason Comments Medication Refill Encounter Details Date Type Department Care Team (Late st Contact Info) Description 10/02/[address] [place], [place] [phone] [place] [address] [place] [address] Medication Refill Social History Tobacco Use Types Packs/Day Years Used Date Smoking Tobacco: Never Passive Smoke Exposure: Never Smokeless Tobacco: Never Alcohol Use Standard Drinks/Week Comments Never 0 (1 standard drink = 0.6 oz pur e alcohol) [facility] Utilities Answer Date Recorded In the past 12 months has [employer] electric, gas, oil, or water company threatened [...] often do you attend chur ch or roman catholic services? 1 to 4 times per year 08/21/2024 Do you belong to any clubs o r organizations such as sabianist groups, unions, fraternal or athletic groups, or [...] Total Score - Questions 1-9 0 08/28 [facility] [place] - Occupational Stress Questionnaire Answer Date Recorded [...] any time in the past 12 m [facility], were you homeless or living in a senior care (including now)? No 08/21/2024 Comments No Sex and Gender Information Value Date Recorded Sex Assigned at Female 06/16/2024 2:51 PM CDT Legal Sex Female 1:45 PM CDT Gender Identity Female 08/21/2024 7:29 AM DEBURRING TECHNICIAN Sexual Orientation Not on file documented as of this encounter Plan of Treatment Not on file documented as of this encounter Visit Diagnoses Not on filedocumented in this encounter Additional Health Concerns Assessment Noted Time PHQ-9 Depression Total Score: 0 09/22/19 25 1:13 PM DEBURRING TECHNICIAN documented as of this encounter Care Teams Pizza Maker Relationship Specialty Start Date End Date Kellie Powers MD [address] [place] [phone] PCP - General Internal Medicine 05/16/24 05/11/25 Marilou Valentine Juke Box Mechanic 05/16/24 05/11/25 documented as of this encounter
--- OUTSIDE RECORDS SUMMARY | 2025-06-09 19:11 | XMS_ITS | Clinical Summary ---
Author Organization [facility] Address [address] [place] [address] Phone Care Team Providers Care Academic Intern Name Role Phone Unavailable Primary Care Provider [...] g 1 03/03/20 25 Active nystatin (MYCOSTATIN) 337279 UNIT/GM CreamIndications:C andidal intertrigo Apply 2 times daily. Application Site: apply to affected area 2 times a day (Description and Location) 30 g 1 03/19/20 25 Active nystatin (Nyamyc) 443051 UNIT/GM Powder TOPICALLY TWICE DAILY 30 g [...] (10 days of Macrobid as prescribed through [facility]), and was fearful the UTI may have been a factor in the dizziness. In ED on 08/18/24 she had labs and CT head without significant findings. She was eventually discharged with diagnosis of dizziness and a prescription for Antivert 25 mg po TID PRN for dizziness. Assessment & Plan (08/22/2024 4:42 PM ADHESIVE PRIMER): 08/22/24: Ms Millan states she filled the [...] days) telehealth appt with Dr. Fuentes with [facility]. Balance problem 11/06/2016 Assessment & Plan (03/03/2025 [...] microalbum/creat. Assessment & Plan (09/22/2024 1:46 PM ADHESIVE PRIMER): - repeat A1c & labs. - continue [...] 01/05/2025 Assessment & Plan (08/22/2024 4:39 PM ADHESIVE PRIMER): 08/22/24: Urinary s/s have improved on Macrobid. She has completed the course of abx. Preoperative examination 06/17/2024 Acute urinary tract infection 05/09/2023 01/05/2025 Scalp laceration 05/05/2023 06/18/2024 Encounters Date Type Department Care Team Description 05/12/2025 Patient Outreach [facility] Outpatient Care Coordination [address] [place] [address] Marilou Valentine Care Management 03/20/[address] [facility] [address] [place] [address] Kellie Powers MD Medication Refill 03/19/[address] [facility] [address] [place] [address] Kellie Powers MD Medication Refill 03/19/[address] [facility] [address] [place] [address] Kellie Powers MD Medication Refill from Last 3 Months Immunizations Immunization Administration [...] drink = 0.6 oz pur e alcohol) [facility] Utilities Answer Date Recorded In the past 12 months has e electric, gas, oil, or water company threatened [...] often do you attend chur ch or jewish services? 1 to 4 times per year 08/21/2024 Do you belong to any clubs o r organizations such as yazidi groups, unions, fraternal or athletic groups, or [...] Score - Questions 1-9 0 05/0 09/2024 [facility] of Occupat ional Health - [...] time in the past 12 m [facility], were you homeless or living in a penitentiary (including now)? No 08/21/2024 AUDIT-C Answer Date [...] CDT Gender Identity Female 08/21/2024 7:29 AM ADHESIVE PRIMER Sexual Orientation Not on file Last Filed [...] (Adults With 1 Tdap) 05/05/2033 05/05/2023, 11/30/2015 Medicare Initial AWV [id number] Completed 03/27/2014 Pneumococcal Immunization (50+ years) Completed 10/09/2014, 03/27/2009 [...] - 30.00 mg/L 12/26/2024 5:15 PM CDT [facility] CREATININE URINE 49.4 >=0.0 mg/dL 12/26/2024 5:15 PM CDT [facility] ALB/CREAT RATIO 15 0 - 30 mg/g CRE 12/26/2024 5:15 PM CDT [facility] Urine Non-Phlebotomy Collection / Unknown 12/26/2024 12:12 PM CDT 12/26/2024 12:12 PM CDT Kellie Powers MD URINE ORDERABLES Final Resu lt [facility] [address] [place] [address], [place] [phone] * (ABNORMAL) HEMOGLOBIN A1C W/ ESTIMATED GLUCOSE (12/26/2024 12:09 PM CDT) Pathologist [facility] HGB-A1C 6.8(H) 4.0 - 6.0 % 12/26/2024 5:54 PM CDT [facility] Est Average Glucose 148.5 mg/dL 12/26/2024 5:54 PM CDT [facility] Blood Venipuncture / Unknown 12/26/2024 12:09 PM CDT 12/26/2024 12:10 PM CDT us Kellie Powers MD CHEMISTRY ORDERABLES Final Result [facility] [address] [place] [address], [place] [phone] from Last 3 Months or Most Recently Relevant to Health Maintenance Insurance MEDICARE [facility] Advance Directives Documents on File Type Date Recorded Patient Search Engine Marketing Specialist Expl anation Other Advance Directive 03/03/2025 4:31 PM pt declaration Power of Production Lead for Health Care 01/23/2025 4:04 PM POA of healthcare forms Advance Care Planning Discussion 07/04/2024 11:38 AM Order for Madeline
--- OUTSIDE RECORDS SUMMARY | 2025-06-09 19:11 | XMS_ITS | Clinical Summary ---
Author Organization [facility] Address [address] [facility] [place] [address] Care Team Providers Care Facilities Maintenance Manager Name Role Phone Farhad Devlin MD Unavailable [phone] Franco Mishra MD Unavailable Sue DillonCONCRETE PAVER Unavailable [phone] Kellie Powers MD Primary Care Provider [phone] Source Comments [facility],non-owned Affiliates and Associated Physician Practices is amultiple site organization consisting of ambulatory clinics and hospital sitesin [place], [place], [place] and [place]. This disclosure is being madepursuant to the Care Everywhere program and may not contain all information available regarding this patient. Last updated 18.[facility] Allergies Active Allergy Reactions Criticality Noted Date [...] fluticasone propionate (FLONASE) 50 MCG/ACT nasal spray [place] 2 sprays into each nostril as needed [...] on file Legal Sex Female 7:05 AM TRANSPORTATION DEPARTMENT HEAD Gender Identity Not on file Sexual Orientation Not on file Last Filed Vital Signs Vital Sign Reading Time Taken Comments Blood Pressure 142/83 08/13/2019 2:30 PM TRANSPORTATION DEPARTMENT HEAD Pulse 83 08/13/2019 2:30 PM TRANSPORTATION DEPARTMENT HEAD Temperature 36.2 C (97.2 F) 08/13/2019 2:30 PM TRANSPORTATION DEPARTMENT HEAD Respiratory Rate 16 08/13/2019 2:30 PM TRANSPORTATION DEPARTMENT HEAD Oxygen Saturation 97% 08/13/2019 2:30 PM TRANSPORTATION DEPARTMENT HEAD Inhaled Oxygen Concentration 21% 10/25/2018 2 :22 AM TRANSPORTATION DEPARTMENT HEAD Weight 107.4 kg (236 lb 12.8 oz) 08/13/2019 2:30 PM TRANSPORTATION DEPARTMENT HEAD Height 165.1 cm (5' 5) 08/13/2019 2:30 PM TRANSPORTATION DEPARTMENT HEAD Body Mass Index 39.41 08/13/2019 2:30 PM TRANSPORTATION DEPARTMENT HEAD Plan of Treatment Health Maintenance Due Date [...] this topic Medical Devices Implanted Type Area Petroleum Refinery Worker Device Identifier Shelf Expiration Date Model / Serial / Lot Constrained Liner 36mm Head, 23 Liner Standard Face Implanted:Qty: 1 on 10/22/2018 by Farhad Romero MD at [facility] Other (Type not listed) Right: [employer] 09/04/2022 [id number] / / [id number] Shell Actb 50mm Hip Lmt Hl Fin Rnglc+ 23 Implanted:Qty: 1 on 10/22/2018 by Farhad Romero MD at [facility] Right: Hip [employer] 09/19/2027 [id number] / / [id number] Screw 6.5mm 25mm Dome Hip Actb Canc Implanted:Qty: 1 on 10/22/2018 by Farhad Romero MD at [facility] Right: Hip [employer] 05/29/2027 [id number] / / [id number] Stem Fem 11mm 160mm Cmnt Por Malhd 136.5 Implanted:Qty: 1 on 10/22/2018 by Farhad Romero MD at [facility] Right: Hip [employer] 06/10/2028 [id number] / / [id number] Carmen Hip System Neck, Type 1 Taper 36mm Implanted:Qty: 1 on 10/22/2018 by Farhad Romero MD at [facility] Right: [employer] 09/20/2028 [id number] / / [id number] Procedures Procedure Name Priority Date/Time Associated Diagnosis [...] - 5.6 % 11/07/2019 1:25 PM CDT [facility] Estimated Average Glucose 189 mg/dL 11/07/2019 1:25 PM CDT [facility] Blood BLOOD SPECIMEN / Unknown Venipuncture / Unknown 11/07/2019 9:56 AM CDT 11/07/2019 9:56 AM CDT Narrative [facility] - 11/07/2019 1:25 PM CDT The following cutoff levels are recommended by [place] [employer]. A1c > 6.5% : considered [...] LAB - CHEMISTRY ORDERABLES Missy mcdermott Result [facility] [address] * (ABNORMAL) COMPREHENSIVE METABOLIC PANEL (11/07/2019 9:56 AM CDT) [facility] Glucose 184(H) 70 - 125 mg/dL 11/07/2019 1:55 PM T [facility] Sodium 138 136 - 145 mmol/L 11/07/2019 1:55 PM T [facility] Potassium 4.0 3.4 - 4.5 mmol/L 11/07/2019 1:55 PM [facility] Chloride 101 98 - 107 mmol/L 11/07/2019 1:55 PM T [facility] CO2 25 22 - 29 mmol/L 11/07/2019 1:55 PM T [facility] Calcium 9.1 8.4 - 10.2 mg/dL 11/07/2019 1:55 PM T [facility] Anion Gap 16 10 - 20 mmol/L 11/07/2019 1:55 PM T [facility] BUN 17.3 9.8 - 20.1 mg/dL 11/07/2019 1:55 PM [facility] Creatinine 0.69 0.57 - 1.11 mg/dL 11/07/2019 1:55 PM [facility] eGFR by MDRD >60 >60 mL/min/1.7 3m2 11/07/2019 1:55 PM [facility] eGFR by MDRD >60 >60 mL/min/1.7 3m2 11/07/2019 1:55 PM T [facility] Alkaline Phosphatase 110 40 - 150 U/L 11/07/2019 1:55 PM [facility] ALT 28 5 - 55 U/L 11/07/2019 1:55 PM [facility] AST 24 5 - 34 U/L 11/07/2019 1:55 PM [facility] Protein Total 6.8 6.4 - 8.3 gm/dL 11/07/2019 1:55 PM [facility] Albumin 3.4(L) 3.5 - 5.0 gm/dL 11/07/2019 1:55 PM [facility] Globulin Total 3.4 2.6 - 4.0 gm/dL 11/07/2019 1:55 PM [facility] Albumin/Globulin Ratio 1.0 0.9 - 1.6 11/07/2019 1:55 PM CDT [facility] Bilirubin Total 0.5 0.2 - 1.2 mg/dL 11/07/2019 1:55 PM CDT [facility] Blood BLOOD SPECIMEN / Unknown Venipuncture / Unknown 11/07/2019 9:56 AM CDT 11/07/2019 9:56 AM CDT us Ken Otero MD LAB - CHEMISTRY ORDERABLES Missy l Result Performing Organization Address [facility] Co de Phone Number [facility] [address] * DEXA BONE DENSITY STUDY [id number] (06/18/2019 11:30 AM CDT) Anatomical Region Laterality [...] to Health Maintenance Insurance MEDICARE COMMERCIAL GENERIC Member Subscriber Plan / Payer (Ef fective 2017-Present) Name:Yani Millan Relation to Subscriber:Self Name:Yani Millan Payer ID:Not on file Group ID:Not on file Type:[employer] Address: [address] [place] [address] MEDICARE SUPPLEMENT PAYOR GENERIC Member Subscriber Plan / Payer (Ef fective for All Dates) Name:Yani Millan Relation to Subscriber:Self Name:Yani Millan Payer ID:Not on file Group ID:Not on file Type:[employer] Address: [id number] [place], [place] [id number] MEDICARE MEDICARE MEDICARE SUPPLEMENT PAYOR GENERIC Member Subscriber Plan / Payer (Ef fective for All Dates) Name:Yani Millan Relation to Subscriber:Self Name:Yani Millan Payer ID:Not on file Group ID:Not on file Type:[employer] Address: [address] [address] [place] [address] [facility] Advance Directives * Full Code (Latest Code Status on File) Date Activated Date Inactivated Comments 10/22/2018 4:31 PM 10/25/2018 4:34 PM Care Teams Facilities Maintenance Manager Relationship Specialty Start Date End Date Kellie Powers MD [address] [place] [phone] PCP - General Internal Medicine 12/25/24 Farhad Devlin MD General Surgery 01/16/14 Franco Mishra MD Pulmonary Disease 03/26/14 Sue Dillon APRN-CNP Nurse Practitioner Pulmonary Disease 12/20/17
--- OUTSIDE RECORDS SUMMARY | 2025-06-09 19:11 | XMS_ITS | Encounter Summary ---
Author Organization [facility] Address [address] [place] [address] Phone Care Team Providers Care Pet Care Assistant Name Role Phone Marilou Valentine Unavailable Unavailable Kellie Powers MD Primary Care Provider [phone] Encounter Details Date Type Department Care Team (Late st Contact Info) Description 08/08/2024 Telephone [facility] [address] [facility] [place], [place] [phone] Kellie Powers MD [address] [place], [place] Social History Tobacco Use Types Packs/Day Years Used Date Smoking Tobacco: Never Smokeless Tobacco: Never Alcohol Use Standard Drinks/Week Comments Never 0 (1 standard drink = 0.6 oz pur e alcohol) [facility] Utilities Answer Date Recorded In the past 12 months has [employer] electric, gas, oil, or water company threatened [...] Never 06/18/2024 How often do you attend advent or protestant serv ices? Never 06/18/2024 Do you belong to any clubs o r organizations such as advent groups, unions, fraternal or athletic groups, or [...] Total Score - Questions 1-9 0 06/27 [facility] - Occupational Stress Questionnaire Answer Date [...] any time in the past 12 m [facility], were you homeless or living in a [facility] (including now)? No 06/18/2024 Comments No Sex and Gender Information Value Date Recorded Sex Assigned at Female 06/16/2024 2:51 PM CDT Legal Sex Female 1:45 PM CDT Gender Identity Female 08/21/2024 7:29 AM AUTO SERVICE ADVISOR Sexual Orientation Not on file documented as of this encounter Miscellaneous Notes * Telephone Encounter - Shasta Burns LPN - 08/08/2024 4:29 PM AUTO SERVICE ADVISOR Discussed with Dr powers and pt needs to be seen UA needs to be done and recommendation is to go to [facility], phoned pt and informed on voiced understanding. SERVICE ADVISOR * Telephone Encounter - Cynthia Valadez I - 08/08/2024 4:18 PM CST Pt called and stated she has a UTI and was wanting medication called in. Pts callback number is [phone]. SERVICE ADVISOR documented in this encounter Plan of Treatment Not on file documented as of this encounter Visit Diagnoses Not on filedocumented in this encounter Additional Health Concerns Assessment Noted Time PHQ-9 Depression Total Score: 0 07/15/20 24 1:00 PM AUTO SERVICE ADVISOR documented as of this encounter Care Teams Pet Care Assistant Relationship Specialty Start Date End Date Kellie Powers MD [address] [place] [phone] PCP - General Internal Medicine 05/16/24 05/11/25 Marilou Valentine Multimedia Services Manager 05/16/24 05/11/25 documented as of this encounter
[2025-06-09 19:33] VITALS: BP 146/82; PULSE 86; RESP 16; TEMP 36.6; O2SAT 100
[2025-06-09 21:34] LABS: Hematocrit 41.0 % (37.0-47.0); Hemoglobin 13.6 g/dL (12.0-15.0); Immature Granulocyte Percent A 0.3 % (0-0.5); Lymphocytes Absolute Auto 3.44 K/mm3 (0.9-3.2); Mean Corpuscular HGB Conc 33.2 g/dl (32-36); Mean Corpuscular Hemoglobin 29.1 pg (26-34); Mean Corpuscular Volume 87.8 fl (80-100); Nucleated Red Blood Cells Absolute Auto 0.000 K/mm3 (0.0-0.012); Nucleated Red Blood Cells Perc 0.0 % (0.0-0.2); Platelet Count Result 208 k/mm3 (150-375); Red Blood Count 4.67 M/mm3 (4.2-5.4); White Blood Count 9.0 K/mm3 (4.5-10.0)
[2025-06-09 21:45] LABS: Alanine Aminotransferase 37 U/L (6-35); Albumin Level 4.1 g/dL (3.5-5.1); Alkaline Phosphatase 98 U/L (38-126); Anion Gap 10 mmol/L (4-12); Aspartate Amino Transferase 45 U/L (14-36); Bilirubin,Total 0.4 mg/dL (0.2-1.3); Blood Urea Nitrogen 17 mg/dL (7-17); Calcium 9.2 mg/dL (8.4-10.2); Carbon Dioxide 24 mmol/L (22-30); Chloride 101 mmol/L (98-107); Estimated Glomerular Filt Rate > 60; Glucose 125 mg/dL (65-110); Lipase 189 U/L (23-300); Magnesium 1.7 mg/dL (1.6-2.3); Potassium 4.2 mmol/L (3.4-5.0); Sodium 135 mmol/L (137-145); Total Protein 7.0 g/dL (6.3-8.2)
[2025-06-09 22:07] LABS: Add Urine Microscopic? YES; Appearance Urine Cloudy (Clear); Glucose Urine UA 3+ mg/dL (Negative); Leukocyte Esterase Ur Negative LEU/UL (Negative); Nitrate Urine Negative (Negative); Non Pathogenic Casts 0-2; Specific Grav Ur 1.035 (1.001-1.035)
--- NOTE | 2025-06-09 22:44 | ED.ABDPAIN ---
HPI - Abdominal Pain General Chief Complaint: Abdominal Pain Stated Complaint: abd. pain Time Seen by Provider: 06/09/25 21:07 History of Present Illness HPI narrative: Patient is an 80-year-old female who presents to the emergency department this evening from [place] was complaining of generalized abdominal pain worse in the bilateral lower quadrants and intermittent diarrhea. She is also complaining of left shoulder pain which she has had since a. Denies any recent falls or trauma. She was prompted by a FLEET SERVICE CLERK to come and get evaluated for the symptoms today. Otherwise she denies any additional symptoms or concerns including any chest pain or shortness of breath, any recent illness, nausea or vomiting. Patient also denies any urinary symptoms. Related Data Home Medications ?Medication ?Instructions ?Recorded ?Confirmed ?Last Taken ?Type acetaminophen [Acetaminophen Extra PO 05/05/25 05/22/25 Unknown History Strength] bupropion HCl 75 mg tablet 75 mg PO DAILY 05/05/25 05/22/25 Unknown History empagliflozin 25 mg tablet 25 mg PO DAILY 05/05/25 05/22/25 Unknown History (Jardiance) losartan 25 mg tablet 25 mg PO DAILY 05/05/25 05/22/25 Unknown History meclizine 25 mg tablet 25 mg PO TID PRN 05/05/25 05/22/25 Unknown History metformin 1,000 mg tablet 1,000 mg PO BID 05/05/25 05/22/25 Unknown History metformin 500 mg tablet 500 mg PO DAILY 05/05/25 05/22/25 Unknown History nystatin 100,000 unit/gram topical 1 applic topical BID PRN 05/05/25 05/22/25 Unknown History cream omeprazole 20 mg capsule,delayed 20 mg PO BID 05/05/25 05/22/25 Unknown History release pravastatin 20 mg tablet 20 mg PO DAILY 05/05/25 05/22/25 Unknown History trazodone 50 mg tablet 50 mg PO QHS 05/05/25 05/22/25 Unknown History turmeric PO 05/05/25 05/22/25 Unknown History vibegron 75 mg tablet (Gemtesa) 75 mg PO DAILY 05/05/25 05/22/25 Unknown History nystatin 100,000 unit/gram topical 1 applic topical BID 05/22/25 05/22/25 Unknown History powder Allergies Allergy/AdvReac Type Severity Reaction Status Date / Time No Known Allergies Allergy Verified 06/09/25 19:38 Review of Systems Review of Systems: All systems are reviewed and are negative unless stated otherwise in the HPI. [facility] Past Medical History Medical History Loose stools Bilateral leg pain Dysuria Left shoulder pain Insomnia Weakness generalized OAB (overactive bladder) GERD (gastroesophageal reflux disease) Depression IBS (irritable bowel syndrome) TMJ arthralgia Vertigo Encounter to establish care Paresthesia of bilateral legs Hyperlipidemia Fatigue CHETNA on CPAP Vaginal atrophy Hx of fracture of ankle Hypertension High cholesterol Diabetes Anxiety Surgical History Surgical History History of hysterectomy Hx of hand surgery History of right hip replacement History of knee replacement left and right knee Family History Family History Mother Depression Hypertension Father Depression Heart disease Hypertension Sibling Alzheimers disease Depression Sibling Alzheimers disease Depression Social History Social History Smoking status: Never smoker Alcohol intake: never Substance use: never Exam Narrative: General: Alert, awake, afebrile, in no acute distress. HEENT: PERRL, no rhinorrhea, no post nasal drip, oropharynx clear. Neck: Trachea midline, no JVD, no lymphadenopathy. Cardiovascular: Regular rate and rhythm, no murmurs, rubs or gallops, no peripheral edema. Respiratory: Clear to auscultation bilaterally, no tachypnea, no wheezing, no rhonchi, no rubs, no respiratory distress. Abdomen: Soft, nontender, nondistended, no rebound, no guarding, no peritoneal signs. Musculoskeletal: No joint swelling or deformity, normal muscle tone. Skin: No rashes or petechia, no signs of infection. Psychiatric: Alert and oriented, normal behavior and judgment for situation. Neurological: Alert and oriented to person, place, and time. Follows all commands. No focal deficits, speech is clear and fluent. Course Vital Signs Vital signs: Vital Signs Temperature 98 F 06/09/25 19:33 Pulse Rate 86 06/09/25 19:33 Respiratory Rate 16 06/09/25 19:33 Blood Pressure 146/82 H 06/09/25 19:33 Pulse Oximetry 100 06/09/25 19:33 Oxygen Delivery Room Air 06/09/25 19:33 Temperature 98 F 06/09/25 19:33 Pulse Rate 86 06/09/25 19:33 Respiratory Rate 16 06/09/25 19:33 Blood Pressure 146/82 H 06/09/25 19:33 Pulse Oximetry 100 06/09/25 19:33 Oxygen Delivery Room Air 06/09/25 19:33 MDM - Abdominal Pain MDM Narrative Medical decision making narrative: The patient was evaluated by myself in the emergency department. History is obtained from patient who is an independent historian and physical exam was performed. External medical records were reviewed at this time. IV was established and pertinent tests were ordered. Patient was administered 1 L IV fluid bolus with normal saline. Laboratory results obtained revealing no acute process. Urinalysis revealed trace ketones otherwise unremarkable. Imaging studies obtained included CT abdomen pelvis with IV contrast which was independently interpreted by me revealing: IMPRESSION: 1. Small hiatal hernia. 2. Indeterminate 15 mm left adrenal nodule. 3. Constipation. Patient was informed of these findings at bedside, including the incidental adrenal nodule and provided with a printout of her CT report. Differential diagnosis considerations include pancreatitis, cholecystitis, appendicitis, diverticulitis, constipation, gastroenteritis, dehydration, acute kidney injury, electrolyte derangements, acute viral syndrome. Comorbidities impacting this visit include none. I have evaluated and discussed social determinants of health with the patient that could potentially impact subsequent diagnosis and treatment plans. On repeat assessment of the patient, reevaluation revealed that the patient is doing well and is in no acute distress. Patient symptoms have improved since she arrived to our emergency department. Repeat vital signs were all reviewed and noted to be stable. Differential diagnosis and treatment plan were discussed with the patient at bedside. Patient agrees with discussion and after shared medical decision making agrees with discharge. All questions were answered to the patient's satisfaction. Patient will follow up with her PCP in 3-5 days. Patient was provided with strict return precautions and instructed to return to the emergency department if any new or worsening symptoms develop. The patient was discharged in stable condition. Lab Data 06/09/25 21:29 06/09/25 21:29 Labs: Lab Results 06/09/25 06/09/25 Range/Units 21:29 21:56 WBC 9.0 (4.5-10.0) K/mm3 RBC 4.67 (4.2-5.4) M/mm3 Hgb 13.6 (12.0-15.0) g/dL Hct 41.0 (37.0-47.0) % MCV 87.8 (80-100) fl MCH 29.1 (26-34) pg MCHC 33.2 (32-36) g/dl RDW 15.8 H (11.5-14.5) % Plt Count 208 (150-375) k/mm3 MPV 10.5 H (7.4-10.4) fl Immature Gran % (Auto) 0.3 (0-0.5) % Neut % (Auto) 50.1 (45.5-73.1) % Lymph % (Auto) 38.1 (18.3-44.2) % [place] % (Auto) 8.1 (2.6-8.5) % Eos % (Auto) 2.8 (0-4.4) % Baso % (Auto) 0.6 (0.2-1.2) % Lymph # (Auto) 3.44 H (0.9-3.2) K/mm3 [place] # (Auto) 0.7 H (0.1-0.6) K/mm3 Eos # (Auto) 0.3 (0-0.3) K/mm3 Baso # (Auto) 0.1 (0.0-0.1) K/mm3 Abs Immat Gran (auto) 0.03 (0.00-0.031) K/mm3 Absolute Neuts (auto) 4.5 (1.3-6.7) K/mm3 Absolute Nucleated RBC 0.000 (0.0-0.012) K/mm3 Nucleated RBC % 0.0 (0.0-0.2) % Sodium 135 L (137-145) mmol/L Potassium 4.2 (3.4-5.0) mmol/L Chloride 101 (98-107) mmol/L Carbon Dioxide 24 (22-30) mmol/L Anion Gap 10 (4-12) mmol/L BUN 17 (7-17) mg/dL Creatinine 0.41 L (0.7-1.0) mg/dL Estim Creat Clear Calc Not Reportable Estimated GFR > 60 (59 - ) Glucose 125 H (65-110) mg/dL Calcium 9.2 (8.4-10.2) mg/dL Magnesium 1.7 (1.6-2.3) mg/dL Total Bilirubin 0.4 (0.2-1.3) mg/dL AST 45 H (14-36) U/L ALT 37 H (6-35) U/L Alkaline Phosphatase 98 (38-126) U/L Total Protein 7.0 (6.3-8.2) g/dL Albumin 4.1 (3.5-5.1) g/dL Lipase 189 (23-300) U/L Urine Color Yellow (Yellow) Urine Appearance Cloudy H (Clear) Urine pH 6.0 (5.0-9.0) Ur Specific [place] 1.035 (1.001-1.035) Urine Protein Negative (Negative) mg/dL Urine Glucose (UA) 3+ H (Negative) mg/dL Urine Ketones Trace H (Negative) mg/dL Ur Blood (Man) Negative (Negative) Urine Nitrate Negative (Negative) Urine Bilirubin Negative (Negative) Urine Urobilinogen 1.0 (<2.0) mg/dL Leukocyte Esterase Rfl Negative (Negative) MASHA/UL Urine RBC 3-5 H (0-2) /hpf Urine WBC 0-5 (0-3) /hpf Ur Squamous Epith Cells Few (Few) /hpf Urine Bacteria None seen /hpf Urine Casts 0-2 Imaging Data Radiologist's impression: ITS Impressions Shoulder X-Ray 06/09/25 21:37 IMPRESSION: No acute fracture or dislocation. Abdomen/Pelvis CT 06/09/25 22:28 IMPRESSION: Small hiatal hernia. Indeterminate 15 mm left adrenal nodule. Constipation. All CT scans at this facility are performed using low dose modulation techniques as appropriate to perform exam including the following: automated exposure control; use of iterative reconstruction technique; adjustment of the mA and/or kV according to patient size (this includes techniques or standardized protocols for targeted exams where dose is matched to indication/reason for exam). Discharge Plan Discharge Clinical Impression: Abdominal pain, Constipation Patient Disposition: Home Condition: Improved Instructions: Antibiotic Form, Constipation (DC), Abdominal Pain (ED) Additional Instructions: Please follow-up with your family doctor within the next 3-5 days. Return to emergency department if any new or worsening symptoms develop. Patient Language: Uzbek Prescriptions: No Action losartan 25 mg tablet 25 mg PO DAILY pravastatin 20 mg tablet 20 mg PO DAILY Jardiance 25 mg tablet 25 mg PO DAILY Gemtesa 75 mg tablet 75 mg PO DAILY estradiol 0.01 % (0.1 mg/gram) cream 1 g vaginal 2XW Qty: 42.5 11RF bupropion HCl 75 mg tablet 75 mg PO DAILY metformin 500 mg tablet 500 mg PO DAILY Rx Instructions: with lunch metformin 1,000 mg tablet 1,000 mg PO BID Patient Comments: Breakfast and dinner trazodone 50 mg tablet 50 mg PO QHS nystatin 100,000 unit/gram cream 1 applic topical BID PRN omeprazole 20 mg capsule,delayed release(DR/EC) 20 mg PO BID acetaminophen [Acetaminophen Extra Strength] PO meclizine 25 mg tablet 25 mg PO TID PRN turmeric PO amoxicillin-pot clavulanate 875-125 mg tablet 1 tablet PO Q12H Qty: 14 0RF nystatin 100,000 unit/gram powder 1 applic topical BID meloxicam 15 mg tablet 15 mg PO DAILY Qty: 30 11RF Follow-up/Referrals: Gabriella Rosado NP [Primary Care Provider, Family Practice] - 3 Days Time of Disposition: 22:45
[2025-06-09 23:15] VITALS: BP 140/80; PULSE 81; RESP 17; TEMP 36.7; O2SAT 100
[2025-06-09] MEDS: SODIUM CHLORIDE 0.9% IV 1,000 ML 999 ML IV CONT (23:24)
[2025-06-10 01:14] VITALS: BP 136/77; PULSE 84; RESP 18; O2SAT 100
[2025-06-10 01:15] VITALS: BP 136/77; PULSE 84; RESP 18; O2SAT 100
== END 2025-06-10 01:18 ==
PROVIDERS: Emergency Provider Emergency Medicine; PCP Nurse Practitioner Family
DX: K59.00 Constipation, unspecified (principal); I10 Essential (primary) hypertension; E78.00 Pure hypercholesterolemia, unspecified; E11.9 Type 2 diabetes mellitus without complications; N32.81 Overactive bladder; K21.9 Gastro-esophageal reflux disease without esophagitis; K58.9 Irritable bowel syndrome, unspecified; G47.33 Obstructive sleep apnea (adult) (pediatric); F32.A Depression, unspecified; F41.9 Anxiety disorder, unspecified; Z96.641 Presence of right artificial hip joint; Z96.653 Presence of artificial knee joint, bilateral; Z90.710 Acquired absence of both cervix and uterus; K44.9 Diaphragmatic hernia without obstruction or gangrene; E27.9 Disorder of adrenal gland, unspecified; Z79.899 Other long term (current) drug therapy; Z79.84 Long term (current) use of oral hypoglycemic drugs
CPT/HCPCS: 36415; 73030; 74177; 80053; 81001; 83690; 83735; 85025; 96360; 99284; J7030; Q9967

== ENCOUNTER 2025-08-26 16:00 | Emergency (ER) | payer MEDICARE, MEDICAID, SELFPAY ==
--- NOTE | ~2025-08-26 | XR_ITS ---
EXAMINATION: XR chest 2V DATE: 08/26/2025 18:49 INDICATION: Dizziness TECHNIQUE: frontal and lateral views of the chest were obtained. COMPARISON: None FINDINGS: The lungs are clear with no focal airspace opacities, pulmonary edema, pleural effusion or pneumothorax. The cardiomediastinal silhouette is normal. Mild thoracic spondylosis. IMPRESSION: 1. No acute cardiopulmonary disease. Reviewed, dictated and finalized at location A. N CONTROL ELECTRONIC TECHNICIAN
--- NOTE | ~2025-08-26 | CT_ITS ---
EXAMINATION: CT brain wo con DATE: 08/26/2025 17:49 INDICATION: Dizziness post fall TECHNIQUE: Computed tomography (CT) of the head was performed without intravenous contrast. Sagittal and coronal reconstructions were performed. The mA was adjusted according to patient size. Iterative reconstruction technique was employed. The dose-length product was 605.33 mGy-cm. COMPARISON: None FINDINGS: Small left parieto-occipital scalp hematoma. No fracture. No acute intracranial hemorrhage, acute infarction or abnormal extra axial fluid collection. There is moderate scattered white matter hypoattenuation consistent with chronic small vessel ischemic disease. Symmetric prominence of the sulci and ventricles consistent with moderate age-appropriate diffuse cerebral volume loss. No mass/mass effect. Changes of bilateral intraocular lens replacement. The orbits, paranasal sinuses and mastoid air cells are normal. IMPRESSION: 1. No fracture or acute intracranial process. 2. Age-related changes including moderate diffuse volume loss and moderate scattered white matter hypoattenuation consistent with chronic small vessel ischemic disease. Reviewed, dictated and finalized at location A. NESS INFO CONSULTANT IMPRESSION: 1. No fracture or acute intracranial process. 2. Age-related changes including moderate diffuse volume loss and moderate scat tered white matter hypoattenuation consistent with chronic small vessel ischemi c disease.
--- NOTE | ~2025-08-26 | CT_ITS ---
EXAMINATION: CT cervical spine wo con DATE: 08/26/2025 17:49 INDICATION: Fall TECHNIQUE: Computed tomography (CT) of the cervical spine was performed without intravenous contrast. Automated exposure control and iterative reconstruction technique were employed. The dose-length product was 336.87 mGy-cm. COMPARISON: None FINDINGS: Mild reversal of the normal lordosis in the lower cervical spine. Vertebral body heights are normal. No fractures. 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 There is solid osseous fusion across the right C3-C4 facet joint. Severe disc height loss at C5-C6 and C6-C7. Moderate disc height loss at C3-C4, C7-T1, T1-T2 and T2-T3 and mild disc height loss at C3-C4 and C4-C5. There is multilevel moderate and severe cervical facet and uncovertebral osteoarthritis. Disc bulges and posterior disc osteophyte complexes resulting in mild to moderate central canal stenosis at C6-C7 and mild central canal stenosis at C2-C3, C3-C4, C5-C6 and C7-T1. 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 Cervical soft tissues are unremarkable. Visualized apices of lungs are clear. IMPRESSION: 1. Severe cervical spondylosis with no acute osseous abnormality. Reviewed, dictated and finalized at location A. E WIRER HELPER
--- OUTSIDE RECORDS SUMMARY | 2025-08-26 16:02 | XMS_ITS | Encounter Summary ---
Author Organization [facility] Address [address] [place] [address] Phone Care Team Providers Care Conductor Freight Name Role Phone Marilou Valentine Unavailable Unavailable Kellie Powers MD Primary Care Provider [phone] Encounter Details Date Type Department Care Team (Late st Contact Info) Description 08/22/2024 Telephone [facility] [address] [facility] [place], [place] [phone] Kellie Powers MD [address] [place] [address] Social History Tobacco Use Types Packs/Day Years Used Date Smoking Tobacco: Never Passive Smoke Exposure: Never Smokeless Tobacco: Never Alcohol Use Standard Drinks/Week Comments Never 0 (1 standard drink = 0.6 oz pur e alcohol) [facility] Utilities Answer Date Recorded In the past 12 months has [employer] electric, gas, oil, or water company threatened [...] declined 08/21/2024 How often do you attend [facility] or hoahaoism services? 1 to 4 times per year 08/21/2024 Do you belong to any clubs o r organizations such as jehovah's witness groups, unions, fraternal or athletic groups, or [...] Total Score - Questions 1-9 0 06/27 [facility] - Occupational Stress [...] any time in the past 12 m [facility], were you homeless or living in a intermediate (including now)? 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 Sexual Orientation Not on file documented as of this encounter Plan of Treatment Not on file documented as of this encounter Visit Diagnoses Not on filedocumented in this encounter Additional Health Concerns Assessment Noted Time PHQ-9 Depression Total Score: 0 07/15/20 1:00 PM FIELD AUDITOR documented as of this encounter Care Teams Conductor Freight Relationship Specialty Start Date End Date Kellie Powers MD [address] [place] [phone] PCP - General Internal Medicine 05/16/24 05/11/25 Marilou Valentine Flat Sorting Machine Clerk 05/16/24 05/11/25 documented as of this encounter
--- OUTSIDE RECORDS SUMMARY | 2025-08-26 16:02 | XMS_ITS | Clinical Summary ---
Author Organization [facility] Address [address] [place] [address] Phone Care Team Providers Care Analytics Director Name Role Phone Unavailable Primary Care Provider [...] g 1 03/03/20 25 Active nystatin (MYCOSTATIN) 236823 UNIT/GM CreamIndications:C andidal intertrigo Apply 2 times daily. Application Site: apply to affected area 2 times a day (Description and Location) 30 g 1 03/19/20 25 Active nystatin (Nyamyc) 347022 UNIT/GM Powder TOPICALLY TWICE DAILY 30 g [...] (10 days of Macrobid as prescribed through [facility]), and was fearful the UTI may have been a factor in the dizziness. In ED on 08/18/24 she had labs and CT head without significant findings. She was eventually discharged with diagnosis of dizziness and a prescription for Antivert 25 mg po TID PRN for dizziness. Assessment & Plan (08/22/2024 4:42 PM CHIEF OF PRODUCTION): 08/22/24: Ms Millan states she filled the [...] all time for stability. F/u with Dr Bae on 09/01/24 as scheduled. Steatosis of liver [...] days) telehealth appt with Dr. Fuentes with [facility] behavioral health program at [facility]. Balance problem 11/06/2016 Assessment & Plan (03/03/2025 [...] microalbum/creat. Assessment & Plan (09/22/2024 1:46 PM CHIEF OF PRODUCTION): - repeat A1c & labs. - continue metformin, Invokana, Mixed incontinence 09/20/2015 Cough variant asthma 03/20/2014 High risk medications (not anticoagulants) long- term use 11/26/2013 Vitamin D deficiency 11/26/2013 Overview (06/17/2024): Acid reflux 01/10/2013 Obesity 01/10/2013 Assessment & Plan (03/03/2025 4:18 [...] like to resume. - refill estradiol cream. Irritable bowel syndrome 01/10/2013 Mixed hyperlipidemia 01/10/2013 Moderate recurrent major depression 01/10/2013 Assessment & Plan (03/03/2025 4:10 PM CDT): - stable. - continue bupropion 75 mg qd. Primary osteoarthritis involving multiple joints 01/10/2013 Overview (06/17/2024): Other specified abnormal findings of blood chemi stry 01/10/2013 Overview (06/17/2024): Restless sleeper 01/10/2013 Overview (06/26/2025): Assessment & Plan (06/26/2025 12:24 PM CDT): >>ASSESSMENT AND PLAN FOR INSOMNIA WRITTEN ON 01/05/2025 3:44 PM BY CASE BAE MD - initiate Ambien wean. - Rx trazodone 50 mg qhs. Assessment & Plan (06/26/2025 12:24 PM CDT): >>ASSESSMENT AND PLAN FOR INSOMNIA WRITTEN ON 06/18/2024 1:47 PM BY CASE BAE MD - continue ambien wean. Reduce to 2.5 mg nightly in 2 days and continue for 2 wks, then stop. - start trazodone 50 mg nightly once off ambien completely. - RTO 1 month. Resolved Problems Problem Noted Date Diagnosed Date Resolved Date Urinary tract infection without hematuria 08/22/2024 01/05/2025 Assessment & Plan (08/22/2024 4:39 PM CHIEF OF PRODUCTION): 08/22/24: Urinary s/s have improved on Macrobid. She has completed the course of abx. Preoperative examination 06/17/2024 Acute urinary tract infection 05/09/2023 01/05/2025 Scalp laceration 05/05/2023 06/18/2024 Immunizations Immunization Administration Dates Next Due Influenza [...] drink = 0.6 oz pur e alcohol) [facility] Utilities Answer Date Recorded In the past 12 months has [employer] electric, gas, oil, or water [employer] threatened to shut off services in your home? No 08/21/2024 Social Connection and Isolation Panel Answer Date Recorded In a typical week, how many times do you talk on the phone with family, friends, or neighbors? Twice a week 08/21/20 How often do you get togethe r with friends or relatives? Patient declined 08/21/2024 How often do you attend [facility] or caodaism services? 1 to 4 times per year 08/21/2024 Do you belong to any clubs o r organizations such as mormonism groups, unions, fraternal or athletic groups, or [...] Score - Questions 1-9 0 05/0 09/2024 [facility] - Occupational Stress Questionnaire Answer Date [...] any time in the past 12 m [facility], were you homeless or living in a senior living (including now)? No 08/21/2024 AUDIT-C Answer Date [...] CDT Gender Identity Female 08/21/2024 7:29 AM CHIEF OF PRODUCTION Sexual Orientation Not on file Last Filed [...] Bone Density 06/18/2021 06/18/2019 Influenza Immunization (#1) 2025 092 09/2021, 05/11/2021, 05/27/2019, Additional history exists SARS-COV-2 Immunization ( season) 2025 01/05/2022, 06/27/2021, 10/25/2020, Additional history exists Diabetes: Hemoglobin A1c 06/28/2025 025, 09/22/2024, 02/09/2021, Additional history exists Medicare Subsequent AWV G0439 10/23/2025 10/23/2024, 07/14/2016, 06/11/2015 Diabetes: Nephropathy Screening 12/26/2025 12/26/2024, 12/12/2024, 09/22/2024, Additional history exists Td Immunization Every 10 Years (Adults With 1 Tdap) 05/05/2033 05/05/2023, 11/30/2015 Medicare Initial AWV G0438 Discontinued 03/27/2014 Pneumococcal Immunization (50+ years) Completed 10/09/2014, 03/27/2009 TdaP Immunization Discontinued 05/05/2023, 11/30/2015 Hepatitis B Immunization Aged Out No longer eligible based on patient's age to complete this topic Human Papillomavirus (HPV) Immunization (No Doses Required) Completed Meningococcal Immunization (ACWY) Aged Out No longer [...] - 30.00 mg/L 12/26/2024 5:15 PM CDT [facility] CREATININE URINE 49.4 >=0.0 mg/dL 12/26/2024 5:15 PM T [facility] ALB/CREAT RATIO 15 0 - 30 mg/g CRE 12/26/2024 5:15 PM CDT [facility] Urine Non-Phlebotomy Collection / Unknown 12/26/2024 12:12 PM CDT 12/26/2024 12:12 PM CDT us Case Bae MD URINE ORDERABLES Final Resu lt [facility] [address] [place] [address], [place] [phone] * (ABNORMAL) HEMOGLOBIN A1C W/ ESTIMATED GLUCOSE (12/26/2024 12:09 PM CDT) [facility] HGB-A1C 6.8(H) 4.0 - 6.0 % 12/26/2024 5:54 PM CDT [facility] Est Average Glucose 148.5 mg/dL 12/26/2024 5:54 PM CDT [facility] Blood Venipuncture / Unknown 12/26/2024 12:09 PM CDT 12/26/2024 12:10 PM CDT us Case Bae MD CHEMISTRY ORDERABLES Final Result [facility] [address] [place] [address], [place] [phone] from Last 3 Months or Most Recently Relevant to Health Maintenance Insurance [facility]IC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
--- OUTSIDE RECORDS SUMMARY | 2025-08-26 16:02 | XMS_ITS | Clinical Summary ---
Author Organization [facility] [employer] Address [address] [place] [address] Care Team Providers Care Non Profit Director Name Role Phone Farhad Devlin MD Unavailable [phone] Franco Mishra MD Unavailable Sue DillonINFORMATION CLERK BROKERAGE Unavailable [phone] Kellie Powers MD Primary Care Provider [phone] Source Comments [facility],non-owned Affiliates and Associated Physician Practices is amultiple site organization consisting of ambulatory clinics and hospital sitesin [place], [place], [place] and [place]. This disclosure is being madepursuant to the Care Everywhere program and may not contain all information available regarding this patient. Last updated 18.[facility] [employer] Allergies Active Allergy Reactions Criticality Noted Date [...] fluticasone propionate (FLONASE) 50 MCG/ACT nasal spray [place] 2 sprays into each nostril as needed [...] on file Legal Sex Female 7:05 AM SURGICAL AIDE Gender Identity Not on file Sexual Orientation Not on file Last Filed Vital Signs Vital Sign Reading Time Taken Comments Blood Pressure 142/83 08/13/2019 2:30 PM SURGICAL AIDE Pulse 83 08/13/2019 2:30 PM SURGICAL AIDE Temperature 36.2 C (97.2 F) 08/13/2019 2:30 PM SURGICAL AIDE Respiratory Rate 16 08/13/2019 2:30 PM SURGICAL AIDE Oxygen Saturation 97% 08/13/2019 2:30 PM SURGICAL AIDE Inhaled Oxygen Concentration 21% 10/25/2018 2 :22 AM SURGICAL AIDE Weight 107.4 kg (236 lb 12.8 oz) 08/13/2019 2:30 PM SURGICAL AIDE Height 165.1 cm (5' 5) 08/13/2019 2:30 PM SURGICAL AIDE Body Mass Index 39.41 08/13/2019 2:30 PM SURGICAL AIDE Plan of Treatment Health Maintenance Due Date Last Done Comments ZOSTER VACCINE (1 of 2) 01/02/1994 PNEUMOCOCCAL [...] this topic Medical Devices Implanted Type Area Distance Learning Unit Leader Device Identifier Shelf Expiration Date Model / Serial / Lot Constrained Liner 36mm Head, 23 Liner Standard Face Implanted:Qty: 1 on 10/22/2018 by Farhad Romero MD at [facility] Other (Type not listed) Right: [employer] 09/04/2022 [id number] / / [id number] Shell Actb 50mm Hip Lmt Hl Fin Rnglc+ 23 Implanted:Qty: 1 on 10/22/2018 by Farhad Romero MD at [facility] Right: Hip [employer] 09/19/2027 [id number] / / [id number] Screw 6.5mm 25mm Dome Hip Actb Canc Implanted:Qty: 1 on 10/22/2018 by Farhad Romero MD at [facility] Right: Hip [employer] 05/29/2027 [id number] / / [id number] Stem Fem 11mm 160mm Cmnt Por Malhd 136.5 Implanted:Qty: 1 on 10/22/2018 by Farhad Romero MD at [facility] Right: Hip [employer] 06/10/2028 [id number] / / [id number] [place] Hip System Neck, Type 1 Taper 36mm Implanted:Qty: 1 on 10/22/2018 by Farhad Romero MD at [facility] Right: [employer] 09/20/2028 [id number] / / [id number] Procedures Procedure Name Priority Date/Time Associated Diagnosis [...] - 5.6 % 11/07/2019 1:25 PM CDT [facility] Estimated Average Glucose 189 mg/dL 11/07/2019 1:25 PM CDT [facility] Blood BLOOD SPECIMEN / Unknown Venipuncture / Unknown 11/07/2019 9:56 AM CDT 11/07/2019 9:56 AM CDT Narrative [facility] - 11/07/2019 1:25 PM CDT The following cutoff levels are recommended by [place] [employer]. A1c > 6.5% : considered [...] LAB - CHEMISTRY ORDERABLES Missy mcdermott Result Performing Organization Address City/State/[facility] Co de Phone Number [facility] [address] * (ABNORMAL) COMPREHENSIVE METABOLIC PANEL (11/07/2019 9:56 AM CDT) [facility] Glucose 184(H) 70 - 125 mg/dL 11/07/2019 1:55 PM [facility] Sodium 138 136 - 145 mmol/L 11/07/2019 1:55 PM [facility] Potassium 4.0 3.4 - 4.5 mmol/L 11/07/2019 1:55 PM [facility] Chloride 101 98 - 107 mmol/L 11/07/2019 1:55 PM [facility] CO2 25 22 - 29 mmol/L 11/07/2019 1:55 PM [facility] Calcium 9.1 8.4 - 10.2 mg/dL 11/07/2019 1:55 PM [facility] Anion Gap 16 10 - 20 mmol/L 11/07/2019 1:55 PM [facility] BUN 17.3 9.8 - 20.1 mg/dL 11/07/2019 1:55 PM [facility] Creatinine 0.69 0.57 - 1.11 mg/dL 11/07/2019 1:55 PM [facility] eGFR by MDRD >60 >60 mL/min/1.7 3m2 11/07/2019 1:55 PM [facility] eGFR by MDRD >60 >60 mL/min/1.7 3m2 11/07/2019 1:55 PM [facility] Alkaline Phosphatase 110 40 - 150 U/L 11/07/2019 1:55 PM [facility] ALT 28 5 - 55 U/L 11/07/2019 1:55 PM [facility] AST 24 5 - 34 U/L 11/07/2019 1:55 PM [facility] Protein Total 6.8 6.4 - 8.3 gm/dL 11/07/2019 1:55 PM [facility] Albumin 3.4(L) 3.5 - 5.0 gm/dL 11/07/2019 1:55 PM [facility] Globulin Total 3.4 2.6 - 4.0 gm/dL 11/07/2019 1:55 PM [facility] Albumin/Globulin Ratio 1.0 0.9 - 1.6 11/07/2019 1:55 PM CDT [facility] Bilirubin Total 0.5 0.2 - 1.2 mg/dL 11/07/2019 1:55 PM CDT [facility] Blood BLOOD SPECIMEN / Unknown Venipuncture / Unknown 11/07/2019 9:56 AM CDT 11/07/2019 9:56 AM CDT us Ken Otero MD LAB - CHEMISTRY ORDERABLES Missy mcdermott Result Performing Organization Address [facility] Co de Phone Number [facility] [address] * DEXA BONE DENSITY STUDY [id number] (06/18/2019 11:30 AM CDT) Anatomical Region Laterality [...] MEDICARE COMMERCIAL GENERIC MEDICARE SUPPLEMENT PAYOR GENERIC Member Subscriber Plan / Payer (Ef fective for All Dates) Name:Yani Millan Relation to Subscriber:Self Name:Yani Millan Payer ID:Not on file Group ID:Not on file Type:Volofy Address: [place] [id number] MEDICARE MEDICARE MEDICARE SUPPLEMENT PAYOR GENERIC [facility] Advance Directives * Full Code (Latest Code Status on File) Date Activated Date Inactivated Comments 10/22/2018 4:31 PM 10/25/2018 4:34 PM Care Teams Non Profit Director Relationship Specialty Start Date End Date Kellie Powers MD [address] [place] [phone] PCP - General Internal Medicine 12/25/24 Farhad Devlin MD General Surgery 01/16/14 Franco Mishra MD Pulmonary Disease 03/26/14 Sue Dillon APRN-LEO Nurse Practitioner Pulmonary Disease 12/20/17
--- OUTSIDE RECORDS SUMMARY | 2025-08-26 16:02 | XMS_ITS | Encounter Summary ---
Author Organization [facility] Address [address] [place] [address] Phone Care Team Providers Care Shot Tube Machine Tender Name Role Phone Marilou Valentine Unavailable Unavailable Kellie Powers MD Primary Care Provider [phone] Reason for Visit * Reason Comments Medication Refill Encounter Details Date Type Department Care Team (Late st Contact Info) Description 10/02/[address] [place], [place] [phone] [place] [address] [place] [address] Medication Refill Social History Tobacco Use Types Packs/Day Years Used Date Smoking Tobacco: Never Passive Smoke Exposure: Never Smokeless Tobacco: Never Alcohol Use Standard Drinks/Week Comments Never 0 (1 standard drink = 0.6 oz pur e alcohol) [facility] Utilities Answer Date Recorded In the past 12 months has [employer] electric, gas, oil, or water company threatened [...] often do you attend chur ch or cheondoism services? 1 to 4 times per year 08/21/2024 Do you belong to any clubs o r organizations such as episcopalian groups, unions, fraternal or athletic groups, or [...] Total Score - Questions 1-9 0 08/28 [facility] - Occupational Stress Questionnaire Answer Date Recorded [...] any time in the past 12 m [facility], were you homeless or living in a fpc (including now)? No 08/21/2024 Comments No Sex and Gender Information Value Date Recorded Sex Assigned at Female 06/16/2024 2:51 PM CDT Legal Sex Female 1:45 PM CDT Gender Identity Female 08/21/2024 7:29 AM ANIMAL CONTROL SUPERVISOR Sexual Orientation Not on file documented as of this encounter Plan of Treatment Not on file documented as of this encounter Visit Diagnoses Not on filedocumented in this encounter Additional Health Concerns Assessment Noted Time PHQ-9 Depression Total Score: 0 09/22/19 25 1:13 PM ANIMAL CONTROL SUPERVISOR documented as of this encounter Care Teams Shot Tube Machine Tender Relationship Specialty Start Date End Date Kellie Powers MD [address] [place] [phone] PCP - General Internal Medicine 05/16/24 05/11/25 Marilou Valentine Inspector Subassemblies 05/16/24 05/11/25 documented as of this encounter
--- OUTSIDE RECORDS SUMMARY | 2025-08-26 16:02 | XMS_ITS | Clinical Summary ---
Author Organization [facility] Address [facility] [place] [address] Care Team Providers Care Window And Door Installer Name Role Phone Kellie Powers MD Primary Care Provider [phone] Social History Tobacco Use Types Packs/Day Years [...] 75+ series) 01/02/2019 COVID-19 Vaccine ( - 2024-2 6 season) 2025 Influenza Adult (#1) 2025 Hepatitis A Vaccines Aged Out No long er eligible based on patient's age to complete this topic Meningococcal B Vaccine Aged Out No l onger eligible based on patient's age to complete this topic Meningococcal Vaccine Aged Out No barrett ellen eligible based on patient's age to complete this topic RSV Immunizations Under 20 Months Aged Out No longer eligible based on patient's age to complete this topic Insurance MEDICARE [employer] Care Teams Window And Door Installer Relationship Specialty Start Date End Date Kellie Powers MD [address] [place] [address] PCP - General EMERGENCY MEDICINE 01/17/22
--- OUTSIDE RECORDS SUMMARY | 2025-08-26 16:02 | XMS_ITS | Encounter Summary ---
Author Organization [facility] Address [address] [place] [address] Phone Care Team Providers Care Tooth Clerk Name Role Phone Marilou Valentine Unavailable Unavailable Kellie Powers MD Primary Care Provider [phone] Encounter Details Date Type Department Care Team (Late st Contact Info) Description 08/08/2024 Telephone [facility] [address] [facility] [place], [place] [phone] Kellie Powers MD [address] [place], [place] Social History Tobacco Use Types Packs/Day Years Used Date Smoking Tobacco: Never Smokeless Tobacco: Never Alcohol Use Standard Drinks/Week Comments Never 0 (1 standard drink = 0.6 oz pur e alcohol) [facility] Utilities Answer Date Recorded In the past 12 months has [employer] electric, gas, oil, or water company threatened [...] Never 06/18/2024 How often do you attend gnosticism or faith serv ices? Never 06/18/2024 Do you belong to any clubs o r organizations such as gnosticism groups, unions, fraternal or athletic groups, or [...] Total Score - Questions 1-9 0 06/27 [facility] - Occupational Stress Questionnaire Answer [...] any time in the past 12 m [facility], were you homeless or living in a mcfp (including now)? No 06/18/2024 Comments No Sex and Gender Information Value Date Recorded Sex Assigned at Female 06/16/2024 2:51 PM CDT Legal Sex Female 1:45 PM CDT Gender Identity Female 08/21/2024 7:29 AM CARE TRANSITION COORDINATOR Sexual Orientation Not on file documented as of this encounter Miscellaneous Notes * Telephone Encounter - Shasta Burns LPN - 08/08/2024 4:29 PM CARE TRANSITION COORDINATOR Discussed with Dr powers and pt needs to be seen UA needs to be done and recommendation is to go to [facility], phoned pt and informed on voiced understanding. TRANSITION COORDINATOR * Telephone Encounter - Cynthia Valadez I - 08/08/2024 4:18 PM CST Pt called and stated she has a UTI and was wanting medication called in. Pts callback number is [phone]. TRANSITION COORDINATOR documented in this encounter Plan of Treatment Not on file documented as of this encounter Visit Diagnoses Not on filedocumented in this encounter Additional Health Concerns Assessment Noted Time PHQ-9 Depression Total Score: 0 07/15/20 24 1:00 PM CARE TRANSITION COORDINATOR documented as of this encounter Care Teams Tooth Clerk Relationship Specialty Start Date End Date Kellie Powers MD [address] [place] [phone] PCP - General Internal Medicine 05/16/24 05/11/25 Marilou Valentine Anesthesiology Crna 05/16/24 05/11/25 documented as of this encounter
[2025-08-26 16:03] VITALS: BP 152/80; PULSE 79; RESP 18; TEMP 36.4; O2SAT 100
--- NOTE | 2025-08-26 18:02 | ED.FALL ---
HPI - Fall General Chief Complaint: Fall <Natalia Mann PA-C - Last Filed: 08/26/25 18:14> Stated Complaint: fall, [place] <Natalia Mann PA-C - Last Filed: 08/26/25 18:14> Time Seen by Provider: 08/26/25 18:06 <Natalia Mann PA-C - Last Filed: 08/26/25 18:14> Focused HPI: Patient is an 80-year-old female who presents the ED via EMS with report of a fall and head injury. Patient is resident of [facility]. Reports she had been feeling lightheaded all day today. Does have history of dizziness in is prescribed meclizine, but states today felt different. Reported having difficulty ambulating due to the lightheadedness. Had a fall while walking with her walker. Fell backwards and hit her head. Denies LOC. Denies syncope. Reports she feels sore all over. Reports chronic neck pain. Denies chest pain, shortness breath, palpitations, focal weakness or numbness GENERAL: Well-appearing, well-nourished, and in no acute distress. HEAD: Normocephalic, large contusion to posterior scalp skin integrity intact. CHEST: Clear to auscultation. ?No respiratory distress. HEART: Regular rate and rhythm.? NEURO: ?Alert and oriented x3. No focal deficits Patient screened in triage and initial orders placed.? ?Additional care and disposition to be based upon?diagnostic testing and treatment. <Natalia Mann PA-C - Last Filed: 08/26/25 18:14> Source: patient <Natalia Mann PA-C - Last Filed: 08/26/25 18:14> Mode of arrival: EMS <Natalia Mann PA-C - Last Filed: 08/26/25 18:14> Limitations: no limitations <Natalia Mann PA-C - Last Filed: 08/26/25 18:14> History of Present Illness HPI Narrative: Agree with the HPI above <Oneil Angeles MD - Last Filed: 08/26/25 22:18> Related Data Home Medications: Home Medications ?Medication ?Instructions ?Recorded ?Confirmed ?Last Taken ?Type bupropion HCl 75 mg tablet 75 mg PO DAILY 05/05/25 06/12/25 Unknown History empagliflozin 25 mg tablet 25 mg PO DAILY 05/05/25 06/12/25 Unknown History (Jardiance) losartan 25 mg tablet 25 mg PO DAILY 05/05/25 06/12/25 Unknown History meclizine 25 mg tablet 25 mg PO TID PRN 05/05/25 06/12/25 Unknown History metformin 1,000 mg tablet 1,000 mg PO BID 05/05/25 06/12/25 Unknown History metformin 500 mg tablet 500 mg PO DAILY 05/05/25 06/12/25 Unknown History nystatin 100,000 unit/gram topical 1 applic topical BID PRN 05/05/25 06/12/25 Unknown History cream omeprazole 20 mg capsule,delayed 20 mg PO BID 05/05/25 06/12/25 Unknown History release pravastatin 20 mg tablet 20 mg PO DAILY 05/05/25 06/12/25 Unknown History trazodone 50 mg tablet 50 mg PO QHS 05/05/25 06/12/25 Unknown History turmeric PO 05/05/25 06/12/25 Unknown History vibegron 75 mg tablet (Gemtesa) 75 mg PO DAILY 05/05/25 06/12/25 Unknown History nystatin 100,000 unit/gram topical 1 applic topical BID 05/22/25 06/12/25 Unknown History powder inulin 1.7 gram chewable tablet g PO 06/12/25 06/12/25 Unknown History (Fiber Gummies) acetaminophen 500 mg tablet (Pain 500 mg PO Q6H PRN pain 08/05/25 Unknown History Reliever Extra Strength (acetaminophen)) <Natalia Mann PA-C - Last Filed: 08/26/25 18:14> Allergies/Adverse Reactions: Allergies Allergy/AdvReac Type Severity Reaction Status Date / Time No Known Allergies Allergy Verified 06/12/25 09:45 <Natalia Mann PA-C - Last Filed: 08/26/25 18:14> Review of Systems Review of Systems: As reviewed above in HPI <Oneil Angeles MD - Last Filed: 08/26/25 22:18> All systems reviewed & are unremarkable except as noted in HPI and below <Oneil Angeles MD - Last Filed: 08/26/25 22:18> PMFSH Past Medical History Medical History: Medical History Loose stools Bilateral leg pain Dysuria Left shoulder pain Insomnia Weakness generalized OAB (overactive bladder) GERD (gastroesophageal reflux disease) Depression IBS (irritable bowel syndrome) TMJ arthralgia Vertigo Encounter to establish care Paresthesia of bilateral legs Hyperlipidemia Fatigue CHETNA on CPAP Vaginal atrophy Hx of fracture of ankle Hypertension High cholesterol Diabetes Anxiety <Natalia Mann PA-C - Last Filed: 08/26/25 18:14> Surgical History Surgical History: Surgical History History of hysterectomy Hx of hand surgery History of right hip replacement History of knee replacement left and right knee <Natalia Mann PA-C - Last Filed: 08/26/25 18:14> Family History Family History: Family History Mother Depression Hypertension Father Depression Heart disease Hypertension Sibling Alzheimers disease Depression Sibling Alzheimers disease Depression <Natalia Mann PA-C - Last Filed: 08/26/25 18:14> Social History Social History: Social History Smoking status: Never smoker Alcohol intake: never Substance use: never <Natalia Mann PA-C - Last Filed: 08/26/25 18:14> Exam Narrative: GENERAL: Well-appearing, well-nourished, and in no acute distress. HEAD: Normocephalic, large contusion to posterior scalp skin integrity intact. CHEST: Clear to auscultation. ?No respiratory distress. HEART: Regular rate and rhythm.? NEURO: ?Alert and oriented x3. No focal deficits <Oneil Angeles MD - Last Filed: 08/26/25 22:18> Course Vital Signs Vital signs: Vital Signs Temperature 36.4 C L 08/26/25 16:03 Pulse Rate 79 08/26/25 16:03 Respiratory Rate 18 08/26/25 16:03 Blood Pressure 152/80 H 08/26/25 16:03 Pulse Oximetry 100 08/26/25 16:03 Oxygen Delivery Room Air 08/26/25 16:03 Temperature 36.4 C L 08/26/25 16:03 Pulse Rate 72 08/26/25 20:45 Respiratory Rate 16 08/26/25 20:45 Blood Pressure 156/77 H 08/26/25 20:45 Pulse Oximetry 100 08/26/25 20:45 Oxygen Delivery Room Air 08/26/25 16:03 <Natalia Mann PA-C - Last Filed: 08/26/25 18:14> Vital Signs Temperature 36.4 C L 08/26/25 16:03 Pulse Rate 79 08/26/25 16:03 Respiratory Rate 18 08/26/25 16:03 Blood Pressure 152/80 H 08/26/25 16:03 Pulse Oximetry 100 08/26/25 16:03 Oxygen Delivery Room Air 08/26/25 16:03 Temperature 36.4 C L 08/26/25 16:03 Pulse Rate 72 08/26/25 20:45 Respiratory Rate 16 08/26/25 20:45 Blood Pressure 156/77 H 08/26/25 20:45 Pulse Oximetry 100 08/26/25 20:45 Oxygen Delivery Room Air 08/26/25 16:03 <Oneil Angeles MD - Last Filed: 08/26/25 22:18> MDM MDM Narrative Medical decision making narrative: MSE by MAIKEL in triage <Natalia Mann PA-C - Last Filed: 08/26/25 18:14> MSE by MAIKEL in triage. 80-year-old female who presents the ED via EMS with report of a fall and head injury. Patient is resident of [facility]. Reports she had been feeling lightheaded all day today. Does have history of dizziness in is prescribed meclizine, but states today felt different. Reported having difficulty ambulating due to the lightheadedness. Had a fall while walking with her walker. Fell backwards and hit her head. Denies LOC. Denies syncope. Reports she feels sore all over. Reports chronic neck pain. Denies chest pain, shortness breath, palpitations, focal weakness or numbness. Patient has a reassuring physical examination is otherwise very well-appearing she is not any distress and has an unremarkable examination aside from a hematoma in the back of her left occipital scalp. She is well hydrated and not any distress. She did states she has been having some chronic diarrhea and has had low magnesium before. Laboratory studies were obtained that do show low magnesium but otherwise normal kidneys normal electrolytes otherwise an unremarkable head CT and CT of the cervical spine. EKG is nonischemic. Discussed with her treatment plan going forward including replacement of her electrolytes and some fluids and then I believe she can be safely discharged back to her skilled care facility as this was a mechanical fall. They were interested in starting magnesium supplement so I will discharge her with a course until she can see her primary care physician. Patient ambulated well after treatment without any concerns. Safe for discharge and patient and family comfortable the plan. <Oneil Angeles MD - Last Filed: 08/26/25 22:18> Differential Diagnosis Differential Diagnosis: Closed head injury, orthostatic syncope, electrolyte deficiencies, dehydration, intracranial hemorrhage <Oneil Angeles MD - Last Filed: 08/26/25 22:18> Lab Data MDM Lab Attestation statement: I personally reviewed the patient's lab results. <Oneil Angeles MD - Last Filed: 08/26/25 22:18> Result diagrams: 08/26/25 18:16 08/26/25 18:16 <Ntaalia Mann PA-C - Last Filed: 08/26/25 18:14> Labs: Lab Results 08/26/25 Range/Units 18:16 WBC 9.7 (4.5-10.0) K/mm3 RBC 4.67 (4.2-5.4) M/mm3 Hgb 13.6 (12.0-15.0) g/dL Hct 41.2 (37.0-47.0) % MCV 88.2 (80-100) fl MCH 29.1 (26-34) pg MCHC 33.0 (32-36) g/dl RDW 14.9 H (11.5-14.5) % Plt Count 196 (150-375) k/mm3 MPV 10.9 H (7.4-10.4) fl Immature Gran % (Auto) 0.7 H (0-0.5) % Neut % (Auto) 63.2 (45.5-73.1) % Lymph % (Auto) 25.0 (18.3-44.2) % [place] % (Auto) 7.5 (2.6-8.5) % Eos % (Auto) 3.1 (0-4.4) % Baso % (Auto) 0.5 (0.2-1.2) % Lymph # (Auto) 2.42 (0.9-3.2) K/mm3 [place] # (Auto) 0.7 H (0.1-0.6) K/mm3 Eos # (Auto) 0.3 (0-0.3) K/mm3 Baso # (Auto) 0.1 (0.0-0.1) K/mm3 Abs Immat Gran (auto) 0.07 H (0.00-0.031) K/mm3 Absolute Neuts (auto) 6.1 (1.3-6.7) K/mm3 Absolute Nucleated RBC 0.000 (0.0-0.012) K/mm3 Nucleated RBC % 0.0 (0.0-0.2) % PT 13.4 (11.1-14.7) Seconds INR 1.0 APTT 30.3 (22.3-36.8) Seconds Sodium 136 L (137-145) mmol/L Potassium 4.0 (3.4-5.0) mmol/L Chloride 101 (98-107) mmol/L Carbon Dioxide 27 (22-30) mmol/L Anion Gap 8 (4-12) mmol/L BUN 23 H (7-17) mg/dL Creatinine 0.51 L (0.7-1.0) mg/dL Estim Creat Clear Calc 72 ml/min Estimated GFR > 60 (59 - ) Glucose 121 H (65-110) mg/dL Calcium 9.3 (8.4-10.2) mg/dL Magnesium 1.5 L (1.6-2.3) mg/dL Total Bilirubin 0.7 (0.2-1.3) mg/dL AST 39 H (14-36) U/L ALT 29 (6-35) U/L Alkaline Phosphatase 81 (38-126) U/L Troponin I < 0.012 (0.000-0.034) ng/mL Total Protein 7.1 (6.3-8.2) g/dL Albumin 4.2 (3.5-5.1) g/dL <Natalia Mann PA-C - Last Filed: 08/26/25 18:14> Lab Results 08/26/25 Range/Units 18:16 WBC 9.7 (4.5-10.0) K/mm3 RBC 4.67 (4.2-5.4) M/mm3 Hgb 13.6 (12.0-15.0) g/dL Hct 41.2 (37.0-47.0) % MCV 88.2 (80-100) fl MCH 29.1 (26-34) pg MCHC 33.0 (32-36) g/dl RDW 14.9 H (11.5-14.5) % Plt Count 196 (150-375) k/mm3 MPV 10.9 H (7.4-10.4) fl Immature Gran % (Auto) 0.7 H (0-0.5) % Neut % (Auto) 63.2 (45.5-73.1) % Lymph % (Auto) 25.0 (18.3-44.2) % Hooker % (Auto) 7.5 (2.6-8.5) % Eos % (Auto) 3.1 (0-4.4) % Baso % (Auto) 0.5 (0.2-1.2) % Lymph # (Auto) 2.42 (0.9-3.2) K/mm3 Hooker # (Auto) 0.7 H (0.1-0.6) K/mm3 Eos # (Auto) 0.3 (0-0.3) K/mm3 Baso # (Auto) 0.1 (0.0-0.1) K/mm3 Abs Immat Gran (auto) 0.07 H (0.00-0.031) K/mm3 Absolute Neuts (auto) 6.1 (1.3-6.7) K/mm3 Absolute Nucleated RBC 0.000 (0.0-0.012) K/mm3 Nucleated RBC % 0.0 (0.0-0.2) % PT 13.4 (11.1-14.7) Seconds INR 1.0 APTT 30.3 (22.3-36.8) Seconds Sodium 136 L (137-145) mmol/L Potassium 4.0 (3.4-5.0) mmol/L Chloride 101 (98-107) mmol/L Carbon Dioxide 27 (22-30) mmol/L Anion Gap 8 (4-12) mmol/L BUN 23 H (7-17) mg/dL Creatinine 0.51 L (0.7-1.0) mg/dL Estim Creat Clear Calc 72 ml/min Estimated GFR > 60 (59 - ) Glucose 121 H (65-110) mg/dL Calcium 9.3 (8.4-10.2) mg/dL Magnesium 1.5 L (1.6-2.3) mg/dL Total Bilirubin 0.7 (0.2-1.3) mg/dL AST 39 H (14-36) U/L ALT 29 (6-35) U/L Alkaline Phosphatase 81 (38-126) U/L Troponin I < 0.012 (0.000-0.034) ng/mL Total Protein 7.1 (6.3-8.2) g/dL Albumin 4.2 (3.5-5.1) g/dL <Oneil Angeles MD - Last Filed: 08/26/25 22:18> Imaging Data Attestation: I personally reviewed and interpreted this imaging study as follows: <Oneil Angeles MD - Last Filed: 08/26/25 22:18> Radiologist's impression: ITS Impressions Head CT 08/26/25 17:56 IMPRESSION: 1. No fracture or acute intracranial process. 2. Age-related changes including moderate diffuse volume loss and moderate scattered white matter hypoattenuation consistent with chronic small vessel ischemic disease. Cervical Spine CT 08/26/25 18:09 IMPRESSION: 1. Severe cervical spondylosis with no acute osseous abnormality. Chest X-Ray 08/26/25 18:58 IMPRESSION: 1. No acute cardiopulmonary disease. <Natalia Mann PA-C - Last Filed: 08/26/25 18:14> ITS Impressions Head CT 08/26/25 17:56 IMPRESSION: 1. No fracture or acute intracranial process. 2. Age-related changes including moderate diffuse volume loss and moderate scattered white matter hypoattenuation consistent with chronic small vessel ischemic disease. Cervical Spine CT 08/26/25 18:09 IMPRESSION: 1. Severe cervical spondylosis with no acute osseous abnormality. Chest X-Ray 08/26/25 18:58 IMPRESSION: 1. No acute cardiopulmonary disease. <Oneil Angeles MD - Last Filed: 08/26/25 22:18> Discharge Plan Discharge Clinical Impression: CHI (closed head injury), Hematoma of occipital region of scalp, Low magnesium level <Natalia Mann PA-C - Last Filed: 08/26/25 18:14> Patient Disposition: NH Correction/Asst Living <Natalia Mann PA-C - Last Filed: 08/26/25 18:14> Condition: Stable <RAY Rothman Last Filed: 08/26/25 18:14> Instructions: Antibiotic Form, Contusion in Adults (ED), Hypomagnesemia (ED) <RAY Rothman Last Filed: 08/26/25 18:14> Additional Instructions: Your magnesium was low here today so we have given her prescription for oral magnesium supplements. Return with any emergent concerns otherwise follow-up with regular primary care provider. Scans and laboratory studies were otherwise reassuring with no acute injuries or other findings needing attention. <Natalia Mann PA-C - Last Filed: 08/26/25 18:14> Patient Language: Nepalese <RAY Rothman Last Filed: 08/26/25 18:14> Prescriptions: New magnesium oxide 200 mg magnesium tablet 200 mg PO DAILY Qty: 30 0RF No Action losartan 25 mg tablet 25 mg PO DAILY pravastatin 20 mg tablet 20 mg PO DAILY Jardiance 25 mg tablet 25 mg PO DAILY Gemtesa 75 mg tablet 75 mg PO DAILY estradiol 0.01 % (0.1 mg/gram) cream 1 g vaginal 2XW Qty: 42.5 11RF bupropion HCl 75 mg tablet 75 mg PO DAILY metformin 500 mg tablet 500 mg PO DAILY Rx Instructions: with lunch metformin 1,000 mg tablet 1,000 mg PO BID Patient Comments: Breakfast and dinner trazodone 50 mg tablet 50 mg PO QHS nystatin 100,000 unit/gram cream 1 applic topical BID PRN omeprazole 20 mg capsule,delayed release(DR/EC) 20 mg PO BID meclizine 25 mg tablet 25 mg PO TID PRN turmeric PO nystatin 100,000 unit/gram powder 1 applic topical BID Fiber Gummies 1.7 gram tablet,chewable PO meloxicam 15 mg tablet 15 mg PO DAILY Qty: 30 11RF (DME) True Metrix Glucose Test Strip Strip See Rx Instructions .Route Qty: 100 3RF Rx Instructions: check blood sugar daily doxycycline hyclate 100 mg tablet 100 mg PO Q12H Qty: 14 0RF amoxicillin-pot clavulanate 875-125 mg tablet 1 tablet PO Q12H Qty: 14 0RF acetaminophen [Pain Reliever ES(acetaminophn)] 500 mg tablet 500 mg PO Q6H PRN (Reason: pain) <Natalia Mann PA-C - Last Filed: 08/26/25 18:14> Follow-up/Referrals: Gabriella Rosado APRN [Primary Care Provider, Family Practice] <Natalia Mann PA-C - Last Filed: 08/26/25 18:14>
--- NOTE | 2025-08-26 18:05 | ECG_ITS ---
Test Date: 2025-08-26 18:33:49 Measurements Intervals [place] Rate: 78 P: 25 ND: 184 QRS: -16 QRSD: 86 T: 10 QT: 383 QTc: 437 Interpretive Statements SINUS RHYTHM WITH SINUS ARRHYTHMIA LOW QRS VOLTAGE IN PRECORDIAL LEADS CONSIDER ANTERIOR INFARCT, AGE INDETERMINATE BORDERLINE T WAVE ABNORMALITY- ANTERIOR LEADS BASELINE ARTIFACT- I, III, AVR, AVL, AVF ABNORMAL ECG No previous ECG available for comparison Electronically Signed On 08-26-2025 21:32:09 TOWEL DISTRIBUTOR by Christian Schmitz D.O.
[2025-08-26 18:22] LABS: Hematocrit 41.2 % (37.0-47.0); Hemoglobin 13.6 g/dL (12.0-15.0); Immature Granulocyte Percent A 0.7 % (0-0.5); Lymphocytes Absolute Auto 2.42 K/mm3 (0.9-3.2); Mean Corpuscular HGB Conc 33.0 g/dl (32-36); Mean Corpuscular Hemoglobin 29.1 pg (26-34); Mean Corpuscular Volume 88.2 fl (80-100); Nucleated Red Blood Cells Absolute Auto 0.000 K/mm3 (0.0-0.012); Nucleated Red Blood Cells Perc 0.0 % (0.0-0.2); Platelet Count Result 196 k/mm3 (150-375); Red Blood Count 4.67 M/mm3 (4.2-5.4); White Blood Count 9.7 K/mm3 (4.5-10.0)
[2025-08-26 18:34] LABS: Alanine Aminotransferase 29 U/L (6-35); Albumin Level 4.2 g/dL (3.5-5.1); Alkaline Phosphatase 81 U/L (38-126); Anion Gap 8 mmol/L (4-12); Aspartate Amino Transferase 39 U/L (14-36); Bilirubin,Total 0.7 mg/dL (0.2-1.3); Blood Urea Nitrogen 23 mg/dL (7-17); Calcium 9.3 mg/dL (8.4-10.2); Carbon Dioxide 27 mmol/L (22-30); Chloride 101 mmol/L (98-107); Estimated CRCL calculation 72 ml/min; Estimated Glomerular Filt Rate > 60; Glucose 121 mg/dL (65-110); Magnesium 1.5 mg/dL (1.6-2.3); Potassium 4.0 mmol/L (3.4-5.0); Sodium 136 mmol/L (137-145); Total Protein 7.1 g/dL (6.3-8.2)
[2025-08-26 18:46] LABS: Troponin I < 0.012 ng/mL (0.000-0.034)
[2025-08-26 18:51] LABS: INR 1.0; Partial Thromboplastin Time 30.3 Seconds (22.3-36.8); Prothrombin Time 13.4 Seconds (11.1-14.7)
[2025-08-26 19:34] VITALS: BP 173/61; PULSE 83; RESP 18; O2SAT 99
[2025-08-26] MEDS: MAGNESIUM SULF 2 GM/WATER 50ML 2 GM/50 ML BAG IVPB (19:43)
[2025-08-26] MEDS: ACETAMINOPHEN 500 MG TABLET 1000 MG PO (19:45)
[2025-08-26] MEDS: LACTATED RINGERS 1,000 ML 999 ML IV CONT (19:45)
[2025-08-26 20:00] VITALS: BP 147/62; PULSE 70; RESP 14; O2SAT 97
[2025-08-26 20:45] VITALS: BP 156/77; PULSE 72; RESP 16; O2SAT 100
== END 2025-08-26 21:24 ==
PROVIDERS: Physician Assistant; Emergency Provider Student in an Organized Health Care Education/Training Program; PCP Nurse Practitioner Family
DX: S09.90XA Unspecified injury of head, initial encounter (principal); S00.03XA Contusion of scalp, initial encounter; E83.42 Hypomagnesemia; W18.30XA Fall on same level, unspecified, initial encounter; M54.2 Cervicalgia; G89.29 Other chronic pain; K21.9 Gastro-esophageal reflux disease without esophagitis; E11.9 Type 2 diabetes mellitus without complications; E78.5 Hyperlipidemia, unspecified; I10 Essential (primary) hypertension; G47.33 Obstructive sleep apnea (adult) (pediatric); Z99.89 Dependence on other enabling machines and devices
CPT/HCPCS: 36415; 70450; 71046; 72125; 80053; 83735; 84484; 85025; 85610; 85730; 93005; 96365; 99284; A9270; J3475; J7120